=== PATIENT | male | born 1995 | race Caucasian/White ===

== ENCOUNTER 2016-06-24 19:11 | Emergency (ER) | payer OTHER ==
[2016-06-24 19:27] VITALS: RESP 20
[2016-06-24] MEDS ORDERED: ONDANSETRON 4 MG/2 ML VIAL IVP STA (20:08)
[2016-06-24] MEDS ORDERED: SODIUM CHLORIDE 0.9% 1,000 ML IV STA (20:08)
--- NOTE | 2016-06-24 20:11 | ED ---
General Adult HPI - General Chief complaint: Abdominal Pain Stated complaint: abd pain Time Seen by Provider: 06/24/16 19:48 Source: patient Mode of arrival: ambulatory Limitations: no limitations - History of Present Illness Initial comments: 21-year-old male awoke with nausea vomiting diarrhea is gone about 8 times today no blood or mucus. No recent antibiotics. No concern regarding food poisoning did not wear unusual and no one else is been ill. Feels hot and cold and achy. No serious health problems. - Related Data Previous Rx's Medication Instructions Recorded Diphenox-Atrop 2.5-0.025 mg 1 tab PO QID PRN #14 tablet 06/24/16 [Lomotil] Ondansetron Odt [Zofran Odt] 4 mg PO Q8HR PRN #6 tab 06/24/16 Allergies Allergy/AdvReac Type Severity Reaction Status Date / Time No Known Allergies Allergy Verified 06/24/16 19:58 Review of Systems ROS Statement: Those systems with pertinent positive or pertinent negative responses have been documented in the HPI. ROS Other: All systems not noted in ROS Statement are negative. Constitutional: Reports: chills. Denies: fever Eyes: Reports: eye discharge ENT: Denies: ear pain, throat pain Respiratory: Denies: cough Cardiovascular: Denies: chest pain Endocrine: Reports: fatigue Gastrointestinal: Reports: nausea, vomiting, diarrhea. Denies: abdominal pain, melena Genitourinary: Denies: urgency, dysuria, frequency, hematuria Skin: Denies: rash Neurological: Denies: headache Hematological/Lymphatic: Denies: easy bleeding, swollen glands Past Medical History Past Medical History: No Reported History History of Any Multi-Drug Resistant Organisms: None Reported Past Surgical History: No Surgical Hx Reported Past Psychological History: No Psychological Hx Reported Smoking Status: Current every day smoker Past Alcohol Use History: Rare Past Drug Use History: None Reported General Exam Limitations: no limitations General appearance: alert Head exam: Present: atraumatic Eye exam: Present: PERRL, EOMI ENT exam: Present: normal oropharynx, mucous membranes dry, mucous membranes moist, TM's normal bilaterally Respiratory exam: Present: normal lung sounds bilaterally Cardiovascular Exam: Present: normal rhythm, normal heart sounds GI/Abdominal exam: Present: soft. Absent: tenderness Neurological exam: Present: alert, CN II-XII intact Psychiatric exam: Present: normal affect, normal mood Skin exam: Present: warm, dry Course Vital Signs 06/24/16 06/24/16 19:25 20:51 Temperature 100.7 F H 98.0 F Pulse Rate 119 H 102 H Respiratory 20 20 Rate Blood Pressure 112/58 114/74 O2 Sat by Pulse 96 Oximetry Medical Decision Making - Lab Data Result diagrams: 06/24/16 20:50 Lab Results 06/24/16 Range/Units 20:50 WBC 9.7 (4.0-11.0) k/uL RBC 5.37 (4.30-5.90) m/uL Hgb 16.1 (13.0-17.5) gm/dL Hct 49.1 (39.0-53.0) % MCV 91.5 (80.0-100.0) fL MCH 30.0 (25.0-35.0) pg MCHC 32.8 (31.0-37.0) g/dL RDW 13.7 (11.5-15.5) % Plt Count 174 (150-450) k/uL Neutrophils % 86 % Lymphocytes % 6 % Monocytes % 5 % Eosinophils % 1 % Basophils % 2 % Neutrophils # 8.4 H (1.3-7.7) k/uL Lymphocytes # 0.5 L (1.0-4.8) k/uL Monocytes # 0.5 (0-1.0) k/uL Eosinophils # 0.1 (0-0.7) k/uL Basophils # 0.1 (0-0.2) k/uL Disposition Clinical Impression: Acute gastroenteritis Disposition: HOME SELF-CARE Condition: Good Instructions: Gastroenteritis (ED) Prescriptions: Diphenox-Atrop 2.5-0.025 mg [Lomotil] 1 tab PO QID PRN #14 tablet PRN Reason: Diarrhea Ondansetron Odt [Zofran Odt] 4 mg PO Q8HR PRN #6 tab PRN Reason: Vomiting Time of Disposition: 21:29
[2016-06-24 21:12] LABS: Basophils # (A) 0.1 k/uL (0-0.2); Basophils % (A) 2 %; CH 31.4; CHCM 34.5; Eosinophils # (A) 0.1 k/uL (0-0.7); Eosinophils % (A) 1 %; HCT 49.1 % (39.0-53.0); HDW 2.36; HGB 16.1 gm/dL (13.0-17.5); Immature Gran Flag Slight; Luc # (Auto) 0.07; Luc % (Auto) 1; Lymphocytes # (A) 0.5 k/uL (1.0-4.8); Lymphocytes % (A) 6 %; MCHC 32.8 g/dL (31.0-37.0); MCV 91.5 fL (80.0-100.0); Mean Platelet Volume 8.4; Monocytes # (A) 0.5 k/uL (0-1.0); Monocytes % (A) 5 %; Neutrophils # (A) 8.4 k/uL (1.3-7.7); Neutrophils % (A) 86 %; RBC 5.37 m/uL (4.30-5.90); RDW 13.7 % (11.5-15.5); WBC 9.7 k/uL (4.0-11.0); WBC (Perox) 9.66
[2016-06-24 21:38] LABS: Anion Gap 12 mmol/L; Blood Urea Nitrogen 18 mg/dL (9-20); Calcium 9.1 mg/dL (8.4-10.2); Carbon Dioxide 22 mmol/L (22-30); Chloride 103 mmol/L (98-107); Glucose 90 mg/dL (74-99); Non-African American GFR(MDRD) >60 (>60 ml/min/1.73 sqM); Potassium 4.1 mmol/L (3.5-5.1); Sodium 137 mmol/L (137-145)
[2016-06-24 22:09] VITALS: BP 115/74; PULSE 90; TEMP 98.2
== END 2016-06-24 22:09 | disposition home or self-care (01) ==
LOC: EC 19:11
DX: K52.9 Noninfective gastroenteritis and colitis, unspecified (principal); F17.200 Nicotine dependence, unspecified, uncomplicated
CPT/HCPCS: 36415; 80048; 85025; 99284; 96374; 96361; J2405

== ENCOUNTER 2016-09-06 21:20 | Emergency (ER) | payer OTHER ==
[2016-09-06 21:35] VITALS: TEMP 98.6
--- NOTE | 2016-09-06 21:52 | ED ---
General Adult HPI - General Chief complaint: Skin/Abscess/Foreign Body Stated complaint: belly button pain Time Seen by Provider: 09/06/16 21:44 Source: patient, RN notes reviewed Mode of arrival: ambulatory Limitations: no limitations - History of Present Illness Initial comments: This is a 21-year-old male presents with tenderness and swelling inside his navel. Patient states this has been happening on and off for 2 months. Patient states he thinks his belly button is irritated by his belt. Patient states the area has been draining. Patient denies any fever/chills or abdominal pain. Patient denies any history of abdominal hernia. Patient denies any recent fever, chills, shortness breath, chest pain, abdominal pain, nausea/ vomiting/diarrhea, back pain, numbness, tingling, hematuria, headache, or visual changes, or any other complaints. - Related Data Previous Rx's Medication Instructions Recorded Sulfamethox-Tmp 800-160Mg [Bactrim 1 tab PO Q12HR #28 tab 09/07/16 DS 800-160 mg] Allergies Allergy/AdvReac Type Severity Reaction Status Date / Time No Known Allergies Allergy Verified 09/06/16 21:34 Review of Systems ROS Statement: Those systems with pertinent positive or pertinent negative responses have been documented in the HPI. ROS Other: All systems not noted in ROS Statement are negative. Past Medical History Past Medical History: No Reported History History of Any Multi-Drug Resistant Organisms: None Reported Past Surgical History: No Surgical Hx Reported Past Psychological History: No Psychological Hx Reported Smoking Status: Current every day smoker Past Alcohol Use History: None Reported Past Drug Use History: None Reported General Exam - General Exam Comments Initial Comments: General: The patient is awake and alert, in no distress, and does not appear acutely ill. Neck: The neck is supple, there is no tenderness or JVD. Cardiovascular: There is a regular rate and rhythm. No murmur, rub or gallop is appreciated. Respiratory: Lungs are clear to auscultation, respirations are non-labored, breath sounds are equal. No wheezes, stridor, rales, or rhonchi. Gastrointestinal: Soft, non-distended, non-tender abdomen without masses or organomegaly noted. There is no rebound or guarding present. No CVA tenderness. Bowel sounds are unremarkable. Musculoskeletal: Normal ROM, no tenderness. Strength 5/5. Sensation intact. Pulses equal bilaterally 2+. Neurological: A&O x 3. CN II-XII intact, There are no obvious motor or sensory deficits. Coordination appears grossly intact. Speech is normal. Skin: There is some localized swelling inside the navel that is erythematous, tender and fluctuant consistent with an abscess. Skin is warm and dry. Psychiatric: Cooperative, appropriate mood & affect, normal judgment. Limitations: no limitations Course Vital Signs 09/06/16 21:32 Temperature 98.6 F Pulse Rate 73 Respiratory 18 Rate Blood Pressure 135/75 O2 Sat by Pulse 100 Oximetry Medical Decision Making - Medical Decision Making This is a 21-year-old male presents with tenderness and swelling in the navel. On physical exam patient is afebrile in the EC. There is some localized swelling inside the navel that is erythematous, tender and fluctuant consistent with an abscess. An ultrasound of the abdomen was done for further evaluation and to rule out hernia and this showed: Indeterminant 2.41.32.2 cm irregular-shaped hypoechoic structure with minimal peripheral vascularity. Differential includes a collection/abscess versus mass. Recommend CT for further evaluation. Report read by Dr. Mancilla. At this time a CT of the abdomen and pelvis without contrast was done and reviewed showin. Roughly 15 x 12 x 9 mm (AP, TV, SI) 24 HU focus along the right aspect of the umbilicus concerning for phlegmon/abscess. Given triangular tail extending posteriorly into the peritoneum, a patent urachus not excluded (series 7 image 68). Consider urology consult. 2. Prominent mesenteric lymph nodes, nonspecific and may be reactive. 3. Hepatomegaly. Reported by Dr. Mancilla. At this time I discussed results with Dr. Underwood and with the patient. Discussed admission for surgery and urology consult with the patient and the patient refuses to stay. I urged the patient to stay but he states he cannot miss work. I discussed that patient will be put on Bactrim as an outpatient and I discussed that he needs to follow-up urology and Gen. surgery. I discussed return parameters and Tylenol and Motrin for any pain. Patient agrees to follow up and return for any worsening signs or symptoms. Discussed that patient should follow up with PCP in one to 2 days or return to the EC for any worsening symptoms or for any further concerns. Patient was receptive to this plan and patient will be discharged home. I discussed this case with attending physician Dr. Francis who agrees the plan as stated above. Disposition Clinical Impression: Abscess Disposition: HOME SELF-CARE Condition: Good Instructions: Abscess (ED) Additional Instructions: Please follow-up with general surgery and urology for further evaluation. Please finish entire course of antibiotics. Please use Tylenol and Motrin for any pain. Please follow-up with your primary care physician in one to 2 days or return to the EC for any worsening symptoms or for any further concerns. Prescriptions: Sulfamethox-Tmp 800-160Mg [Bactrim DS 800-160 mg] 1 tab PO Q12HR #28 tab Referrals: None,Stated [Primary Care Provider] - 1-2 days En Ta MD [STAFF PHYSICIAN] - 1-2 days Delmi James MD [STAFF PHYSICIAN] - 1-2 days Time of Disposition: 00:45
--- NOTE | 2016-09-06 22:53 | US ---
EXAM: US Umbilicus. CLINICAL HISTORY: Reason: Pain TECHNIQUE: Real-time ultrasound of the umbilicus with image documentation. COMPARISON: No relevant prior studies available. FINDINGS: Indeterminate 2.4 x 1.3 x 2.2 cm irregular shaped hypoechoic structure with minimal peripheral vascularity. Differential includes a collection/abscess versus mass. Recommend CT for further evaluation. IMPRESSION: Indeterminate 2.4 x 1.3 x 2.2 cm irregular shaped hypoechoic structure with minimal peripheral vascularity. Differential includes a collection/abscess versus mass. Recommend CT for further evaluation.
--- NOTE | 2016-09-07 00:04 | CT ---
EXAM: CT Abdomen and Pelvis Without Intravenous Contrast. CLINICAL HISTORY: Reason: Pain TECHNIQUE: Axial computed tomography images of the abdomen and pelvis without intravenous contrast. CTDI is 13 mGy and DLP is 721 mGy-cm. This CT exam was performed using one or more of the following dose reduction techniques: automated exposure control, adjustment of the mA and/or kV according to patient size, and/or use of iterative reconstruction technique. COMPARISON: Ultrasound 09/06/2016. FINDINGS: Lower thorax: No acute findings. ABDOMEN: Liver: Hepatomegaly. Gallbladder and bile ducts: Unremarkable. No calcified stones. No ductal dilation. Pancreas: Unremarkable. No ductal dilation. Spleen: Unremarkable. No splenomegaly. Adrenals: Unremarkable. No mass. Kidneys and ureters: Unremarkable. No obstructing stones. No hydronephrosis. Stomach and bowel: Unremarkable. No obstruction. No mucosal thickening. Appendix: No findings to suggest acute appendicitis. PELVIS: Bladder: Unremarkable. No stones. Reproductive: Unremarkable as visualized. ABDOMEN and PELVIS: Intraperitoneal space: Unremarkable. No free air. No significant fluid collection. Bones/joints: No acute fracture. No dislocation. Soft tissues: Roughly 15 x 12 x 9 mm (AP, TV, SI)/24 HU focus along the right aspect of the umbilicus concerning for phlegmon/abscess. Given triangular tail extending posteriorly into the peritoneum, a patent urachus not excluded (series 7 image 68). Consider urology consult Vasculature: Unremarkable. No abdominal aortic aneurysm. Lymph nodes: Prominent mesenteric lymph nodes, nonspecific and may be reactive. IMPRESSION: 1. Roughly 15 x 12 x 9 mm (AP, TV, SI)/24 HU focus along the right aspect of the umbilicus concerning for phlegmon/abscess. Given triangular tail extending posteriorly into the peritoneum, a patent urachus not excluded (series 7 image 68). Consider urology consult 2. Prominent mesenteric lymph nodes, nonspecific and may be reactive. 3. Hepatomegaly.
[2016-09-07 01:05] VITALS: BP 128/73; PULSE 77; RESP 16
== END 2016-09-07 01:04 | disposition home or self-care (01) ==
LOC: EC 21:20
DX: L02.216 Cutaneous abscess of umbilicus (principal); R16.0 Hepatomegaly, not elsewhere classified; F17.200 Nicotine dependence, unspecified, uncomplicated
CPT/HCPCS: 74176; 76705; 99284

== ENCOUNTER 2016-09-07 13:30 | Emergency (ER) | payer OTHER ==
[2016-09-07 14:39] VITALS: RESP 18
--- NOTE | 2016-09-07 15:48 | ED ---
General Adult HPI - General Chief complaint: Recheck/Abnormal Lab/Rx Stated complaint: abscess in naval Time Seen by Provider: 09/07/16 15:37 Source: patient, RN notes reviewed Mode of arrival: ambulatory Limitations: no limitations - History of Present Illness Initial comments: 21-year-old male presents emergency Department chief complaint umbilical pain. Patient was seen in emergency department yesterday and told he had abdominal abscess. Patient was advised to stay but he signed out states that he had a little work. Patient states he had increased pain and states he cannot go to work. Patient states that the pain is worse today than yesterday. Patient denies fever, chills. Patient states he has had some control feeling for last few months but states this is much different. Patient denies any nausea, vomiting diarrhea constipation. Denies any dysuria or hematuria. - Related Data Previous Rx's Medication Instructions Recorded Ibuprofen [Motrin] 600 mg PO Q8HR PRN #30 tab 09/07/16 Sulfamethox-Tmp 800-160Mg [Bactrim 1 tab PO Q12HR #28 tab 09/07/16 DS 800-160 mg] Allergies Allergy/AdvReac Type Severity Reaction Status Date / Time No Known Allergies Allergy Verified 09/07/16 15:49 Review of Systems ROS Statement: Those systems with pertinent positive or pertinent negative responses have been documented in the HPI. ROS Other: All systems not noted in ROS Statement are negative. Past Medical History Past Medical History: No Reported History History of Any Multi-Drug Resistant Organisms: None Reported Past Surgical History: Hernia Repair, Orthopedic Surgery Additional Past Surgical History / Comment(s): right arm Past Psychological History: No Psychological Hx Reported Smoking Status: Current every day smoker Past Alcohol Use History: None Reported Past Drug Use History: None Reported General Exam General appearance: alert, in no apparent distress Head exam: Present: atraumatic, normocephalic, normal inspection Respiratory exam: Present: normal lung sounds bilaterally. Absent: respiratory distress, wheezes, rales, rhonchi, stridor Cardiovascular Exam: Present: regular rate, normal rhythm, normal heart sounds. Absent: systolic murmur, diastolic murmur, rubs, gallop, clicks GI/Abdominal exam: Present: soft, tenderness (Moderate tenderness around the umbilicus there is a 1 cm erythematous area this region with palpation), normal bowel sounds. Absent: distended, guarding, rebound, rigid Back exam: Absent: CVA tenderness (R), CVA tenderness (L) Psychiatric exam: Present: normal affect, normal mood Course Vital Signs 09/07/16 14:35 Temperature 98.1 F Pulse Rate 67 Respiratory 18 Rate Blood Pressure 118/61 O2 Sat by Pulse 98 Oximetry Procedures - Incision & Drainage Consent Obtained: verbal consent Indication: Abscess Site: other (Umbilicus region) Size (cm): 1 Anesthetic Used: lidocaine 1%, without epi Amount (mLs): 3 I&D Cleaning Method: Betadine Scalpel Used: #11 I&D Drainage Obtained: Pus, Blood Culture Obtained?: No Patient Tolerated Procedure: well, no complications Medical Decision Making - Lab Data Result diagrams: 09/07/16 15:50 09/07/16 15:50 Lab Results 09/07/16 09/07/16 09/07/16 Range/Units 15:50 15:50 15:50 WBC 7.1 (4.0-11.0) k/uL RBC 5.32 (4.30-5.90) m/uL Hgb 16.4 (13.0-17.5) gm/dL Hct 49.9 (39.0-53.0) % MCV 93.8 (80.0-100.0) fL MCH 30.8 (25.0-35.0) pg MCHC 32.9 (31.0-37.0) g/dL RDW 13.6 (11.5-15.5) % Plt Count 234 (150-450) k/uL Neutrophils % 61 % Lymphocytes % 26 % Monocytes % 6 % Eosinophils % 4 % Basophils % 1 % Neutrophils # 4.3 (1.3-7.7) k/uL Lymphocytes # 1.9 (1.0-4.8) k/uL Monocytes # 0.5 (0-1.0) k/uL Eosinophils # 0.3 (0-0.7) k/uL Basophils # 0.0 (0-0.2) k/uL PT 10.2 (9.0-12.0) sec INR 1.0 (<1.1) APTT 25.3 (22.0-30.0) sec Sodium 143 (137-145) mmol/L Potassium 4.4 (3.5-5.1) mmol/L Chloride 105 (98-107) mmol/L Carbon Dioxide 28 (22-30) mmol/L Anion Gap 10 mmol/L BUN 16 (9-20) mg/dL Creatinine 0.80 (0.66-1.25) mg/dL Est GFR (MDRD) Af Amer >60 (>60 ml/min/1.73 sqM) Est GFR (MDRD) Non-Af >60 (>60 ml/min/1.73 sqM) Glucose 68 L (74-99) mg/dL Calcium 9.5 (8.4-10.2) mg/dL Total Bilirubin 0.4 (0.2-1.3) mg/dL AST 26 (17-59) U/L ALT 33 (21-72) U/L Alkaline Phosphatase 86 (38-126) U/L Total Protein 7.5 (6.3-8.2) g/dL Albumin 4.5 (3.5-5.0) g/dL Disposition Clinical Impression: Abscess, umbilical Disposition: HOME SELF-CARE Condition: Stable Instructions: Abscess Incision and Drainage (ED) Additional Instructions: Please return to the Emergency Department if symptoms worsen or any other concerns. Take antibiotics as directed. Prescriptions: Ibuprofen [Motrin] 600 mg PO Q8HR PRN #30 tab PRN Reason: Pain Referrals: None,Stated [Primary Care Provider] - 1-2 days Víctor Macias MD [STAFF PHYSICIAN] - 1-2 days Time of Disposition: 17:24
[2016-09-07 16:01] LABS: Basophils % (A) 1 %; CH 31.6; CHCM 33.9; Eosinophils # (A) 0.3 k/uL (0-0.7); Eosinophils % (A) 4 %; HCT 49.9 % (39.0-53.0); HDW 2.47; HGB 16.4 gm/dL (13.0-17.5); Luc # (Auto) 0.15; Luc % (Auto) 2; Lymphocytes # (A) 1.9 k/uL (1.0-4.8); Lymphocytes % (A) 26 %; MCH 30.8 pg (25.0-35.0); MCHC 32.9 g/dL (31.0-37.0); MCV 93.8 fL (80.0-100.0); Monocytes # (A) 0.5 k/uL (0-1.0); Monocytes % (A) 6 %; Neutrophils # (A) 4.3 k/uL (1.3-7.7); Neutrophils % (A) 61 %; RBC 5.32 m/uL (4.30-5.90); RDW 13.6 % (11.5-15.5); WBC 7.1 k/uL (4.0-11.0); WBC (Perox) 7.18
[2016-09-07 16:10] LABS: ALT 33 U/L (21-72); AST 26 U/L (17-59); Alkaline Phosphatase 86 U/L (38-126); Anion Gap 10 mmol/L; Blood Urea Nitrogen 16 mg/dL (9-20); Calcium 9.5 mg/dL (8.4-10.2); Carbon Dioxide 28 mmol/L (22-30); Chloride 105 mmol/L (98-107); Glucose 68 mg/dL (74-99); Non-African American GFR(MDRD) >60 (>60 ml/min/1.73 sqM); Potassium 4.4 mmol/L (3.5-5.1); Sodium 143 mmol/L (137-145); Total Bilirubin 0.4 mg/dL (0.2-1.3); Total Protein 7.5 g/dL (6.3-8.2)
[2016-09-07 16:38] LABS: Partial Thromboplastin Time 25.3 sec (22.0-30.0); Prothrombin Time 10.2 sec (9.0-12.0)
[2016-09-07 18:15] VITALS: BP 127/65; PULSE 60; TEMP 97.1
== END 2016-09-07 18:15 | disposition home or self-care (01) ==
LOC: EC 13:30
DX: L02.216 Cutaneous abscess of umbilicus (principal); F17.200 Nicotine dependence, unspecified, uncomplicated
CPT/HCPCS: 10060; 36415; 80053; 85025; 85610; 85730; 87040; 87070; 87205; 99283

== ENCOUNTER 2016-10-02 20:10 | Emergency (ER) | payer OTHER ==
[2016-10-02 20:16] VITALS: BP 133/61; PULSE 73; RESP 18; TEMP 98.2
[2016-10-02] MEDS ORDERED: KETOROLAC 60 MG/2 ML VIAL IM STA (20:26)
[2016-10-02] MEDS ORDERED: ORPHENADRINE 30 MG/ML 2 ML VIAL IM STA (20:26)
--- NOTE | 2016-10-02 20:33 | ED ---
Back Pain HPI - General Chief Complaint: Back Pain/Injury Stated Complaint: Mid-back pain Time Seen by Provider: 10/02/16 20:16 Source: patient, RN notes reviewed Limitations: no limitations - History of Present Illness Initial Comments: 21-year-old male presents to the emergency department with a chief complaint of back pain. Patient states that he tweaked his back at work today. Patient states pains in the center of the back. Patient states is no radiation. Patient states constant type pain worse to move. Patient denies any loss of bowel or bladder function with this. Patient denies any fever chills cough cold Raynaud's. Patient eyes any nausea vomiting or radiation the pain. Patient states she was concerned due to the continued pain so he thought that he should be evaluated.Patient denies any recent fever, chills, shortness of breath, chest pain, abdominal pain, nausea vomiting, numbness or tingling, dysuria or hematuria, constipation or diarrhea, headaches or visual changes, or any other current symptoms. - Related Data Previous Rx's Medication Instructions Recorded Sulfamethox-Tmp 800-160Mg [Bactrim 1 tab PO Q12HR #28 tab 09/07/16 DS 800-160 mg] Ibuprofen [Motrin] 800 mg PO Q6HR PRN #20 tab 10/02/16 Orphenadrine [Norflex] 100 mg PO Q12H #10 tablet.er 10/02/16 Allergies Allergy/AdvReac Type Severity Reaction Status Date / Time No Known Allergies Allergy Verified 10/02/16 20:15 Review of Systems ROS Statement: Those systems with pertinent positive or pertinent negative responses have been documented in the HPI. ROS Other: All systems not noted in ROS Statement are negative. Past Medical History Past Medical History: No Reported History History of Any Multi-Drug Resistant Organisms: None Reported Past Surgical History: Hernia Repair, Orthopedic Surgery Additional Past Surgical History / Comment(s): right arm Past Psychological History: No Psychological Hx Reported Smoking Status: Current every day smoker Past Alcohol Use History: None Reported Past Drug Use History: None Reported General Exam Limitations: no limitations General appearance: alert, in no apparent distress Head exam: Present: atraumatic, normocephalic, normal inspection ENT exam: Present: normal exam, mucous membranes moist Neck exam: Present: normal inspection. Absent: tenderness, meningismus, lymphadenopathy Respiratory exam: Present: normal lung sounds bilaterally. Absent: respiratory distress, wheezes, rales, rhonchi, stridor Cardiovascular Exam: Present: regular rate, normal rhythm, normal heart sounds. Absent: systolic murmur, diastolic murmur, rubs, gallop, clicks Back exam: Present: normal inspection, full ROM, paraspinal tenderness (Right and left), vertebral tenderness (Diffuse through lumbar). Absent: rash noted Expanded Back exam: Absent: saddle anesthesia Back exam: Negative Straight Leg Raising: Left, Right Neurological exam: Present: alert, oriented X3 Skin exam: Present: warm, dry, intact, normal color. Absent: rash Course Vital Signs 10/02/16 20:12 Temperature 98.2 F Pulse Rate 73 Respiratory 18 Rate Blood Pressure 133/61 O2 Sat by Pulse 96 Oximetry Medical Decision Making - Medical Decision Making 21-year-old male presents with lumbar strain. At this time x-rays that show any acute processes. Patient's medications. Discussed with surgeon on muscle relaxers and anti-inflammatories for home. We discussed. With his doctor return parameters. We discussed all patient's questions. He stated that he understood and agreed with plan. All questions are answered. He will be discharged. - Radiology Data Radiology results: report reviewed, image reviewed Disposition Clinical Impression: Lumbar strain Disposition: HOME SELF-CARE Condition: Stable Instructions: Lower Back Exercises (ED), Low Back Strain (ED) Additional Instructions: Please use medication as discussed. Please follow up with family doctor if symptoms have not improved over the next two days. Please return to the emergency room if your symptoms increase or worsen or for any other concerns. Prescriptions: Ibuprofen [Motrin] 800 mg PO Q6HR PRN #20 tab PRN Reason: Pain Orphenadrine [Norflex] 100 mg PO Q12H #10 tablet.er Referrals: Yovany Tovar MD [STAFF PHYSICIAN] - 1-2 days Time of Disposition: 20:43
--- NOTE | 2016-10-02 20:41 | XR ---
EXAMINATION TYPE: XR lumbar spine 2 or 3V DATE OF EXAM: 10/02/2016 8:36 PM CLINICAL HISTORY: pain TECHNIQUE: Three views of the lumbar spine are submitted. COMPARISON: None. FINDINGS: There are 5 lumbar type vertebral bodies identified. The lumbar spine shows satisfactory alignment w ithout evidence of acute fracture or dislocation. Vertebral body heights are within normal limits. Disc spaces are within normal limits. The overlying soft tissue appears unremarkable. IMPRESSION: No acute fracture or dislocation is seen in the lumbar spine. ICD 10 NO FRACTURE, INITIAL EVALUATION
== END 2016-10-02 20:53 | disposition home or self-care (01) ==
LOC: EC 20:10
DX: S39.012A Strain of muscle, fascia and tendon of lower back, initial encounter (principal); F17.200 Nicotine dependence, unspecified, uncomplicated; X50.1XXA Overexertion from prolonged static or awkward postures, initial encounter; Y92.89 Other specified places as the place of occurrence of the external cause; Y99.0 Civilian activity done for income or pay
CPT/HCPCS: 72100; 99283; 96372 ×2; J2360; J1885

== ENCOUNTER 2017-01-19 12:38 | Emergency (ER) | payer OTHER ==
[2017-01-19] MEDS ORDERED: MAG HYDROX/AL HYDROX/SIMETH 30 ML, HYOSCYAMINE ELIXIR 10 ML, CIMETIDINE HCL 300 MG PO STA ×3 (13:31)
--- NOTE | 2017-01-19 13:35 | ED ---
General Adult HPI - General Chief complaint: Abdominal Pain Stated complaint: Abd Pain Time Seen by Provider: 01/19/17 13:00 Source: patient, RN notes reviewed Mode of arrival: ambulatory Limitations: no limitations - History of Present Illness Initial comments: This is a 21-year-old male presents emergency department stating that for the last 5-6 days 3 times eats something it upsets his stomach. Patient states he' s been mildly nauseated but has not vomited. Patient denies any diarrhea. denies any fever or chills. Patient denies any chest pain difficulty breathing or shortness of breath. Patient states he does not have a primary medical care doctor. Patient states it doesn't seem to matter what he eats it all upsets his stomach. When I ask him specifically where in his stomach he says everywhere. - Related Data Home Medications Medication Instructions Recorded Confirmed No Known Home Medications [No 01/19/17 01/19/17 Known Home Medications] Allergies Allergy/AdvReac Type Severity Reaction Status Date / Time No Known Allergies Allergy Verified 01/19/17 13:22 Review of Systems ROS Statement: Those systems with pertinent positive or pertinent negative responses have been documented in the HPI. ROS Other: All systems not noted in ROS Statement are negative. Past Medical History Past Medical History: No Reported History History of Any Multi-Drug Resistant Organisms: None Reported Past Surgical History: Hernia Repair, Orthopedic Surgery Additional Past Surgical History / Comment(s): right arm Past Psychological History: No Psychological Hx Reported Smoking Status: Current every day smoker Past Alcohol Use History: None Reported Past Drug Use History: None Reported General Exam - General Exam Comments Initial Comments: GENERAL: Patient is well-developed and well-nourished. Patient is nontoxic and well- hydrated and is in mild distress. ENT: Neck is soft and supple. No significant lymphadenopathy is noted. Oropharynx is clear. Moist mucous membranes. Neck has full range of motion without eliciting any pain. EYES: The sclera were anicteric and conjunctiva were pink and moist. Extraocular movements were intact and pupils were equal round and reactive to light. Eyelids were unremarkable. PULMONARY: Unlabored respirations. Good breath sounds bilaterally. No audible rales rhonchi or wheezing was noted. CARDIOVASCULAR: There is a regular rate and rhythm without any murmurs gallops or rubs. ABDOMEN: Mildly tender abdomen in the upper quadrants. No palpable organomegaly was noted. There is no palpable pulsatile mass. SKIN: Skin is clear with no lesions or rashes and otherwise unremarkable. NEUROLOGIC: Patient is alert and oriented x3. Cranial nerves II through XII are grossly intact. Motor and sensory are also intact. Normal speech, volume and content. Symmetrical smile. MUSCULOSKELETAL: Normal extremities with adequate strength and full range of motion. LYMPHATICS: No significant lymphadenopathy is noted PSYCHIATRIC: Normal psychiatric evaluation. Normal interpersonal interactions appears functionally intact in deals appropriately with others. No signs of depression. No signs of anxiety. Limitations: no limitations Course Vital Signs 01/19/17 13:18 Temperature 97.0 F L Pulse Rate 68 Respiratory 18 Rate Blood Pressure 132/78 O2 Sat by Pulse 98 Oximetry Medical Decision Making - Medical Decision Making KUB shows no acute abnormality. Patient is requesting a note because he has court ordered work today and he didn't go. - Lab Data Result diagrams: 01/19/17 13:35 01/19/17 13:35 Lab Results 01/19/17 01/19/17 01/19/17 Range/Units 13:35 13:35 13:50 WBC 6.2 (4.0-11.0) k/uL RBC 4.89 (4.30-5.90) m/uL Hgb 15.3 (13.0-17.5) gm/dL Hct 45.9 (39.0-53.0) % MCV 94.0 (80.0-100.0) fL MCH 31.2 (25.0-35.0) pg MCHC 33.2 (31.0-37.0) g/dL RDW 14.2 (11.5-15.5) % Plt Count 200 (150-450) k/uL Neutrophils % 54 % Lymphocytes % 32 % Monocytes % 6 % Eosinophils % 4 % Basophils % 1 % Neutrophils # 3.4 (1.3-7.7) k/uL Lymphocytes # 2.0 (1.0-4.8) k/uL Monocytes # 0.4 (0-1.0) k/uL Eosinophils # 0.3 (0-0.7) k/uL Basophils # 0.1 (0-0.2) k/uL Sodium 141 (137-145) mmol/L Potassium 3.9 (3.5-5.1) mmol/L Chloride 109 H (98-107) mmol/L Carbon Dioxide 25 (22-30) mmol/L Anion Gap 7 mmol/L BUN 13 (9-20) mg/dL Creatinine 0.69 (0.66-1.25) mg/dL Est GFR (MDRD) Af Amer >60 (>60 ml/min/1.73 sqM) Est GFR (MDRD) Non-Af >60 (>60 ml/min/1.73 sqM) Glucose 52 L (74-99) mg/dL Calcium 8.6 (8.4-10.2) mg/dL Total Bilirubin 0.3 (0.2-1.3) mg/dL AST 22 (17-59) U/L ALT 27 (21-72) U/L Alkaline Phosphatase 64 (38-126) U/L Total Protein 5.8 L (6.3-8.2) g/dL Albumin 3.5 (3.5-5.0) g/dL Amylase <30 L (30-110) U/L Lipase 29 (23-300) U/L Urine Color Yellow Urine Appearance Clear (Clear) Urine pH 5.5 (5.0-8.0) Ur Specific Barre 1.021 (1.001-1.035) Urine Protein 1+ H (Negative) Urine Glucose (UA) 1+ H (Negative) Urine Ketones Negative (Negative) Urine Blood Negative (Negative) Urine Nitrite Negative (Negative) Urine Bilirubin Negative (Negative) Urine Urobilinogen <2.0 (<2.0) mg/dL Ur Leukocyte Esterase Small H (Negative) Urine RBC 1 (0-5) /hpf Urine WBC 5 (0-5) /hpf Ur Squamous Epith Cells <1 (0-4) /hpf Urine Bacteria Rare H (None) /hpf Urine Mucus Rare H (None) /hpf Urine Sperm Few H (None) /hpf Disposition Clinical Impression: Gastritis Disposition: HOME SELF-CARE Condition: Good Instructions: Gastritis (ED) Referrals: None,Stated [Primary Care Provider] - 1-2 days Time of Disposition: 14:22
[2017-01-19 13:59] LABS: Basophils # (A) 0.1 k/uL (0-0.2); Basophils % (A) 1 %; CH 32.4; CHCM 34.7; Eosinophils # (A) 0.3 k/uL (0-0.7); Eosinophils % (A) 4 %; HCT 45.9 % (39.0-53.0); HDW 2.54; HGB 15.3 gm/dL (13.0-17.5); Luc # (Auto) 0.16; Luc % (Auto) 3; Lymphocytes % (A) 32 %; MCH 31.2 pg (25.0-35.0); MCHC 33.2 g/dL (31.0-37.0); Monocytes # (A) 0.4 k/uL (0-1.0); Monocytes % (A) 6 %; Neutrophils # (A) 3.4 k/uL (1.3-7.7); Neutrophils % (A) 54 %; RBC 4.89 m/uL (4.30-5.90); RDW 14.2 % (11.5-15.5); WBC 6.2 k/uL (4.0-11.0); WBC (Perox) 6.27
--- NOTE | 2017-01-19 14:03 | XR ---
EXAMINATION TYPE: XR KUB DATE OF EXAM: 01/19/2017 CLINICAL DATA: 21-year-old male with abdominal pain, PHH COMPARISON: None FINDINGS: Lung bases are clear. No evidence for free intraperitoneal air. Small air-fluid levels within the right hemicolon. No dilated small bowel or small bowel air-fluid le vels seen. No significant stool burden. No suspicious calcifications. IMPRESSION: 1. Tiny air-fluid levels in the right hemicolon suggest enteritis or regional ileus. 2.No evidence of bowel obstruction or free intraperitoneal air.
[2017-01-19 14:08] LABS: Appearance,Urine Clear (Clear); Bacteria,Urine Rare /hpf; Bilirubin,Urine Negative (Negative); Glucose,Urine (UA) 1+ (Negative); Ketones,Urine Negative (Negative); Leukocyte Esterase,Urine Small (Negative); Mucus,Urine Rare /hpf; Nitrite,Urine Negative (Negative); PH, Urine 5.5 (5.0-8.0); Particle Count 4911; Protein,Urine 1+ (Negative); RBC,Urine 1 /hpf (0-5); Specific Gravity,Urine 1.021 (1.001-1.035); Sperm,Urine Few /hpf; Squamous Epithelial Cell,Urine <1 /hpf (0-4); UA Billing (MACRO vs. MICRO) MICRO; Urobilinogen,Urine <2.0 mg/dL (<2.0); WBC,Urine 5 /hpf (0-5)
[2017-01-19 14:09] LABS: ALT 27 U/L (21-72); AST 22 U/L (17-59); Alkaline Phosphatase 64 U/L (38-126); Amylase <30 U/L (30-110); Anion Gap 7 mmol/L; Blood Urea Nitrogen 13 mg/dL (9-20); Calcium 8.6 mg/dL (8.4-10.2); Carbon Dioxide 25 mmol/L (22-30); Chloride 109 mmol/L (98-107); Glucose 52 mg/dL (74-99); Non-African American GFR(MDRD) >60 (>60 ml/min/1.73 sqM); Potassium 3.9 mmol/L (3.5-5.1); Sodium 141 mmol/L (137-145); Total Bilirubin 0.3 mg/dL (0.2-1.3); Total Protein 5.8 g/dL (6.3-8.2)
[2017-01-19 14:33] VITALS: BP 118/59; PULSE 52; RESP 14; TEMP 97.6
== END 2017-01-19 14:35 | disposition home or self-care (01) ==
LOC: EC 12:38
DX: K29.70 Gastritis, unspecified, without bleeding (principal); F17.200 Nicotine dependence, unspecified, uncomplicated
CPT/HCPCS: 36415; 74000; 80053; 81001; 82150; 83690; 85025; 99284

== ENCOUNTER 2017-06-14 16:57 | Emergency (ER) | payer OTHER ==
[2017-06-14 17:04] VITALS: BP 151/85; PULSE 92; RESP 16
--- NOTE | 2017-06-14 17:52 | XR ---
EXAMINATION TYPE: XR shoulder complete RT DATE OF EXAM: 06/14/2017 COMPARISON: NONE HISTORY: Shoulder pain TECHNIQUE: 3 views FINDINGS: I see no fracture nor dislocation. Joint spaces are normal. There are no pathologic calcifi cations. IMPRESSION: Negative right shoulder exam.
--- NOTE | 2017-06-14 17:53 | XR ---
EXAMINATION TYPE: XR cervical spine comp DATE OF EXAM: 06/14/2017 COMPARISON: NONE HISTORY: Pain TECHNIQUE: 5 views FINDINGS: Cervical vertebra have normal spacing and alignment. Posterior limits are intact. Neural fo ramina are widely patent. Atlantoaxial facet joint is normal. There are no cervical ribs. IMPRESSION: Normal cervical spine.
--- NOTE | 2017-06-14 17:54 | XR ---
EXAMINATION TYPE: XR wrist complete RT DATE OF EXAM: 06/14/2017 COMPARISON: NONE HISTORY: Wrist pain TECHNIQUE: 4 views FINDINGS: I see no fracture nor dislocation. Joint spaces are normal. There are no pathologic calcifi cations. IMPRESSION: Negative right wrist exam.
--- NOTE | 2017-06-14 18:02 | ED ---
Fall HPI - General Chief Complaint: Fall Stated Complaint: Shoulder injury Time Seen by Provider: 06/14/17 17:18 Source: patient Mode of arrival: ambulatory - History of Present Illness Initial Comments: 22-year-old male patient presents to the emergency department today for evaluation of neck, right shoulder, and right wrist pain after a fall on Saturday. Patient states that he initially was fine however started developing pain to these areas this morning when he woke from sleep. He is reporting pain to the left side of the neck that increases with rightward rotation. He states he is also having pain to the right posterior shoulder with movement of the arm. He states he does have pain with movement to the right wrist. He denies any numbness or tingling in his arms or legs. Denies any loss of bowel or bladder control. Denies any weakness. He states he did hit his head however he did not lose consciousness at the time of injury. Denies any headaches, nausea, vomiting, dizziness, or weakness of the incident. Patient denies any back pain, chest pain, shortness of breath, dizziness, weakness, abdominal pain, nausea, vomiting, or difficulties with bowel movements or urination. - Related Data Previous Rx's Medication Instructions Recorded Ibuprofen [Motrin] 600 mg PO Q8HR PRN #30 tab 06/14/17 Allergies Allergy/AdvReac Type Severity Reaction Status Date / Time No Known Allergies Allergy Verified 06/14/17 17:18 Review of Systems ROS Statement: Those systems with pertinent positive or pertinent negative responses have been documented in the HPI. ROS Other: All systems not noted in ROS Statement are negative. Past Medical History Past Medical History: No Reported History History of Any Multi-Drug Resistant Organisms: None Reported Past Surgical History: Hernia Repair, Orthopedic Surgery Additional Past Surgical History / Comment(s): right arm Past Psychological History: No Psychological Hx Reported Smoking Status: Current every day smoker Past Alcohol Use History: Occasional Past Drug Use History: None Reported General Exam Limitations: no limitations General appearance: alert, in no apparent distress, other (Physical well- developed, well-nourished adult male patient no acute distress. Vital signs upon presentation are temperature 96.9F, pulse 92, respirations 16, blood pressure 151/85, pulse ox 99% on room air.) Head exam: Present: atraumatic, normocephalic, normal inspection Eye exam: Present: normal appearance, PERRL, EOMI. Absent: scleral icterus, conjunctival injection, periorbital swelling ENT exam: Present: normal exam, mucous membranes moist Neck exam: Present: normal inspection, full ROM. Absent: tenderness, meningismus, lymphadenopathy Respiratory exam: Present: normal lung sounds bilaterally. Absent: respiratory distress, wheezes, rales, rhonchi, stridor Cardiovascular Exam: Present: regular rate, normal rhythm, normal heart sounds. Absent: systolic murmur, diastolic murmur, rubs, gallop, clicks GI/Abdominal exam: Present: soft, normal bowel sounds. Absent: distended, tenderness, guarding, rebound, rigid Extremities exam: Present: normal inspection, full ROM, normal capillary refill , other (Patient reports increased pain to the right wrist with extension. Skin is pink, warm, and dry. Cap refills less than 3 seconds. Radial pulses are 2+ and equal bilaterally.). Absent: tenderness, pedal edema, joint swelling , calf tenderness Back exam: Present: normal inspection, paraspinal tenderness (Right thoracic) Neurological exam: Present: alert, oriented X3, CN II-XII intact Psychiatric exam: Present: normal affect, normal mood Skin exam: Present: warm, dry, intact, normal color. Absent: rash Course Vital Signs 06/14/17 17:01 Pulse Rate 92 Respiratory 16 Rate Blood Pressure 151/85 O2 Sat by Pulse 99 Oximetry Medical Decision Making - Medical Decision Making 22-year-old male patient presented to the emergency department today for evaluation of neck, right shoulder, and right wrist pain. Physical examination is unremarkable. Patient reported increased pain with movement. Skin to the upper extremities is pink, warm, and dry. Patient had good upper extremities strength 5/5. X-rays were obtained of the cervical spine, right wrist, and right shoulder were all negative for any acute fracture or dislocation. Patient neurovascular status was intact. Patient did request a work note several times throughout exam and then again after results were back. He'll be given one day off of work. He is instructed to follow-up with his primary care physician for further evaluation. He is instructed to return here immediately for any new, worsening, or concerning symptoms. He verbalizes understanding and agrees with this plan. - Radiology Data Radiology results: report reviewed, image reviewed 4 views of the right wrist show no fracture nor dislocation. Joint spaces are normal. There are no pathologic calcifications. Impression by Dr. Dna shows negative right wrist exam. 3 views of the right shoulder show no fracture nor dislocation. Joint spaces are normal. There are no pathologic calcifications. Impression by Dr. Dan shows negative right shoulder exam. 5 views of the cervical spine shows cervical vertebra abnormal spacing alignment. Posterior limits are intact. Neural foramina are widely patent. Atlantoaxial facet joint is normal. There are no cervical ribs. Impression by Dr. Dan shows normal cervical spine. Disposition Clinical Impression: Muscle strain Disposition: HOME SELF-CARE Condition: Good Instructions: Muscle Strain (ED) Additional Instructions: Apply warm moist heat to the painful areas. Take anti-inflammatory pain medications as directed. Follow-up with your primary care physician for recheck in 1-2 days. Return here immediately for any new, worsening, or concerning symptoms. Prescriptions: Ibuprofen [Motrin] 600 mg PO Q8HR PRN #30 tab PRN Reason: Pain Referrals: None,Stated [Primary Care Provider] - 1-2 days Time of Disposition: 18:01
== END 2017-06-14 18:11 | disposition home or self-care (01) ==
LOC: EC 16:57
DX: S46.911A Strain of unspecified muscle, fascia and tendon at shoulder and upper arm level, right arm, initial encounter (principal); M54.2 Cervicalgia; M25.531 Pain in right wrist; F17.200 Nicotine dependence, unspecified, uncomplicated; W01.198A Fall on same level from slipping, tripping and stumbling with subsequent striking against other object, initial encounter
CPT/HCPCS: 72050; 99283

== ENCOUNTER 2018-05-14 02:29 | Emergency (ER) | payer OTHER ==
[2018-05-14 02:33] VITALS: BP 122/76; PULSE 81; RESP 20; TEMP 97.8
[2018-05-14] MEDS ORDERED: KETOROLAC 30 MG/ML 1 ML VIAL IM STA (02:38)
--- NOTE | 2018-05-14 02:44 | ED ---
Upper Extremity HPI - General Source: patient, family Mode of arrival: ambulatory Limitations: no limitations <Jahaira Pereira - Last Filed: 05/14/18 03:28> <Christa Xie P - Last Filed: 05/14/18 08:03> - General Chief Complaint: Extremity Injury, Upper Stated Complaint: L shoulder Pain Time Seen by Provider: 05/14/18 02:35 - History of Present Illness Initial Comments: 23-year-old male patient percents to the emergency department today for complaints of left shoulder pain. Patient is reporting pain over the left clavicle. Patient states his playing football earlier in the day today and he was tackled and fell awkwardly on the left side. Patient states his been having pain since and however when he went to go to bed tonight the pain became worse. He denies any numbness or tingling to the arm. Denies any radiation of pain down the arm. Denies any head injury or neck pain. Denies any previous injury to the shoulder. Patient denies any headache, back pain, chest pain, shortness of breath, dizziness, weakness, abdominal pain, nausea, vomiting, or difficulties with bowel movements or urination. (Jahaira Pereira) - Related Data Previous Rx's Medication Instructions Recorded Ibuprofen [Motrin] 600 mg PO Q8HR PRN #30 tab 05/14/18 Allergies Allergy/AdvReac Type Severity Reaction Status Date / Time No Known Allergies Allergy Verified 05/14/18 02:33 Review of Systems ROS Other: All systems not noted in ROS Statement are negative. <Jahaira Pereira - Last Filed: 05/14/18 03:28> ROS Other: All systems not noted in ROS Statement are negative. <Christa Xie - Last Filed: 05/14/18 08:03> ROS Statement: Those systems with pertinent positive or pertinent negative responses have been documented in the HPI. Past Medical History Past Medical History: No Reported History History of Any Multi-Drug Resistant Organisms: None Reported Past Surgical History: Hernia Repair, Orthopedic Surgery Additional Past Surgical History / Comment(s): right arm Past Psychological History: No Psychological Hx Reported Smoking Status: Current every day smoker Past Alcohol Use History: Occasional Past Drug Use History: None Reported <Jahaira Pereira - Last Filed: 05/14/18 03:28> General Exam Limitations: no limitations General appearance: alert, in no apparent distress, other (This is a well- developed, well-nourished adult male patient in no acute distress. Vital signs upon presentation are temperature 97.8F and pulse 81, respirations 20, blood pressure 122/76, pulse ox 97%.) Eye exam: Present: normal appearance, PERRL, EOMI. Absent: scleral icterus, conjunctival injection, periorbital swelling Neck exam: Present: normal inspection, full ROM, other (Nontender, no step-off, no deformity to firm midline palpation of the posterior cervical spine. Full range of motion without pain or limitation.). Absent: tenderness, meningismus, lymphadenopathy Respiratory exam: Present: normal lung sounds bilaterally. Absent: respiratory distress, wheezes, rales, rhonchi, stridor Cardiovascular Exam: Present: regular rate, normal rhythm, normal heart sounds. Absent: systolic murmur, diastolic murmur, rubs, gallop, clicks Extremities exam: Present: normal inspection, full ROM (Increased pain with range of motion), tenderness (Tenderness over the left clavicle, midshaft), normal capillary refill, other (Skin to the left upper extremities pink, warm, and dry. Cap refills less than 3 seconds. Radial pulses 2+ and equal bilaterally.). Absent: pedal edema, joint swelling, calf tenderness Back exam: Present: normal inspection, other (Nontender, no step-off, no deformity to firm midline palpation of the thoracic and lumbar vertebrae. Full range of motion without pain or limitation.). Absent: vertebral tenderness Neurological exam: Present: alert, oriented X3, CN II-XII intact Psychiatric exam: Present: normal affect, normal mood Skin exam: Present: warm, dry, intact, normal color. Absent: rash <Jahaira Pereira M - Last Filed: 05/14/18 03:28> Vital Signs 05/14/18 02:30 Temperature 97.8 F Pulse Rate 81 Respiratory 20 Rate Blood Pressure 122/76 O2 Sat by Pulse 97 Oximetry Medical Decision Making - Radiology Data Radiology results: report reviewed, image reviewed <Jahaira Pereira M - Last Filed: 05/14/18 03:28> <Christa Xie P - Last Filed: 05/14/18 08:03> - Medical Decision Making 23-year-old male patient presents to the emergency department today for evaluation after injuring his left shoulder during football earlier today. Physical examination was relatively unremarkable however he did have some tenderness over the mid shaft of the left clavicle. X-rays were obtained and showed no acute osseous abnormalities. We did discuss possibility of a muscle strain. He'll be given prescription for ibuprofen. He is instructed to follow- up with his primary care physician for recheck in 1-2 days. Return parameters discussed in detail. He verbalizes understanding and agrees with this plan (Jahaira Pereira) I was available for consultation in the emergency department. The history and physical exam were done by the midlevel provider. I was consulted for this patient's care. I reviewed the case with the midlevel provider and based on their presentation of the patient, I agree with the assessment, medical decision making and plan of care as documented. (Christa Xie) - Radiology Data 3 views of the left shoulder obtained. No fracture or dislocation noted. Joint spaces are normal. There are no pathologic calcifications. Impression by Dr. Dan shows negative left shoulder exam. 2 views of the left clavicle are obtained. No fracture or dislocation. Joint spaces are normal. There are no pathologic calcifications. Impression by Dr. Dan shows negative left clavicle exam. (Jahaira Pereira) Disposition Is patient prescribed a controlled substance at d/c from ED?: No Time of Disposition: 03:23 <Jahaira Pereira - Last Filed: 05/14/18 03:28> <Christa Xie - Last Filed: 05/14/18 08:03> Clinical Impression: Left shoulder strain Disposition: HOME SELF-CARE Condition: Good Instructions: Shoulder Sprain (ED) Additional Instructions: Take medication as directed. Apply ice to the left shoulder 20 minutes at a time at least 4 times daily for the first 24 hours and switch to warm moist heat. Follow-up with her primary care physician for recheck 1-2 days. Return immediately for any new, worsening, or concerning symptoms. Prescriptions: Ibuprofen [Motrin] 600 mg PO Q8HR PRN #30 tab PRN Reason: Pain Referrals: None,Stated [Primary Care Provider] - 1-2 days
--- NOTE | 2018-05-14 03:19 | XR ---
EXAMINATION TYPE: XR shoulder complete LT DATE OF EXAM: 05/14/2018 COMPARISON: NONE HISTORY: Shoulder pain TECHNIQUE: 3 views FINDINGS: I see no fracture nor dislocation. Joint spaces are normal. There are no pathologic calcifi cations. IMPRESSION: Negative left shoulder exam.
--- NOTE | 2018-05-14 03:20 | XR ---
EXAMINATION TYPE: XR clavicle LT DATE OF EXAM: 05/14/2018 COMPARISON: NONE HISTORY: Clavicle pain TECHNIQUE: 2 views FINDINGS: I see no fracture nor dislocation. Joint spaces are normal. There are no pathologic calcifi cations. IMPRESSION: Negative left clavicle exam.
== END 2018-05-14 03:30 | disposition home or self-care (01) ==
LOC: EC 02:29
DX: S46.912A Strain of unspecified muscle, fascia and tendon at shoulder and upper arm level, left arm, initial encounter (principal); F17.200 Nicotine dependence, unspecified, uncomplicated; W03.XXXA Other fall on same level due to collision with another person, initial encounter; Y93.61 Activity, american tackle football
CPT/HCPCS: 73030; 73000; 99283; 96372; J1885

== ENCOUNTER 2018-07-15 11:06 | Emergency (ER) | payer OTHER ==
[2018-07-15 11:41] VITALS: BP 155/91; PULSE 66; RESP 18; TEMP 97.8
[2018-07-15] MEDS ORDERED: ACET/COD 300 MG/30 MG STARTER PACK 6 TAB BTL PO STA (12:17)
[2018-07-15] MEDS ORDERED: PENICILLIN VK 500MG STARTER 4 TAB BTL PO STA (12:18)
--- NOTE | 2018-07-15 12:18 | ED ---
ENT HPI - General Chief complaint: Dental/Oral Stated complaint: dental pain, facial swelling Time Seen by Provider: 07/15/18 12:01 Source: patient, RN notes reviewed, old records reviewed Mode of arrival: ambulatory Limitations: no limitations - History of Present Illness Initial comments: Patient is a pleasant 23-year-old male who presents emergency Department today with complaints of right upper dental pain. Patient states the symptoms started 2-3 days ago. He states that he does have poor dentition and has a broken upper right-sided tooth. Patient states that he has never seen a dentist. Currently Patient does not have insurance. Patient states that he has had no fevers or chills. He denies trismus or drainage from the gums. - Related Data Previous Rx's Medication Instructions Recorded Ibuprofen [Motrin] 600 mg PO Q8HR PRN #30 tab 05/14/18 Ibuprofen [Motrin] 600 mg PO Q8HR PRN #20 tab 07/15/18 Penicillin V Potassium [Pen Vee K] 500 mg PO QID #40 tablet 07/15/18 Allergies Allergy/AdvReac Type Severity Reaction Status Date / Time No Known Allergies Allergy Verified 07/15/18 11:41 Review of Systems ROS Statement: Those systems with pertinent positive or pertinent negative responses have been documented in the HPI. ROS Other: All systems not noted in ROS Statement are negative. Past Medical History Past Medical History: No Reported History History of Any Multi-Drug Resistant Organisms: None Reported Past Surgical History: Hernia Repair, Orthopedic Surgery Additional Past Surgical History / Comment(s): right arm Past Psychological History: No Psychological Hx Reported Smoking Status: Current every day smoker Past Alcohol Use History: Occasional Past Drug Use History: None Reported General Exam - General Exam Comments Initial Comments: 23-year-old male. Alert and oriented. Patient appears in no acute distress. Limitations: no limitations General appearance: alert, in no apparent distress Head exam: Present: atraumatic, normocephalic, normal inspection Eye exam: Present: normal appearance, PERRL, EOMI. Absent: scleral icterus, conjunctival injection, periorbital swelling ENT exam: Present: mucous membranes moist, other. Absent: normal exam, normal oropharynx (Patient has evidnce of poor dentition. Multiple dental caries. Patient has a broken tooth #6 and 7.) Neck exam: Present: normal inspection Respiratory exam: Present: normal lung sounds bilaterally. Absent: respiratory distress, wheezes, rales, rhonchi, stridor Cardiovascular Exam: Present: regular rate, normal rhythm, normal heart sounds. Absent: systolic murmur, diastolic murmur, rubs, gallop, clicks GI/Abdominal exam: Present: soft, normal bowel sounds. Absent: distended, tenderness, guarding, rebound, rigid Neurological exam: Present: alert, oriented X3, CN II-XII intact Psychiatric exam: Present: normal affect, normal mood Skin exam: Present: warm, dry, intact, normal color. Absent: rash Course Vital Signs 07/15/18 11:40 Temperature 97.8 F Pulse Rate 66 Respiratory 18 Rate Blood Pressure 155/91 O2 Sat by Pulse 98 Oximetry Medical Decision Making - Medical Decision Making 23-year-old male presents with dental pain. Has evidence of multiple dental caries. Patient has broken tooth #6 and 7 with gingival erythema noted above. Patient at this time. On Pen-Vee K short course of pain medicine given a starter pack. Discussed the Patient needs follow-up with the dental clinic. All questions answered return parameters were discussed. Disposition Clinical Impression: Dental caries, Broken tooth, Dental infection Disposition: HOME SELF-CARE Condition: Good Instructions (If sedation given, give patient instructions): Dental Abscess (ED ) Additional Instructions: [facility] [place] [address] [phone] (existing clients only) For new clients: [phone] 1st consult: $50 (includes Xrays) Usually 30% less then private dentist for visits after. [employer] [facility] [employer] Have to pay $50 for Xrays anmd rest is covered. [phone] Prescriptions: Ibuprofen [Motrin] 600 mg PO Q8HR PRN #20 tab PRN Reason: Pain Penicillin V Potassium [Pen Vee K] 500 mg PO QID #40 tablet Is patient prescribed a controlled substance at d/c from ED?: No Referrals: None,Stated [Primary Care Provider] - 1-2 days Time of Disposition: 12:16
== END 2018-07-15 12:33 | disposition home or self-care (01) ==
LOC: EC 11:06
DX: S02.5XXA Fracture of tooth (traumatic), initial encounter for closed fracture (principal); K02.9 Dental caries, unspecified; K04.7 Periapical abscess without sinus; F17.200 Nicotine dependence, unspecified, uncomplicated; X58.XXXA Exposure to other specified factors, initial encounter
CPT/HCPCS: 99283

== ENCOUNTER 2018-07-17 17:58 | Emergency (ER) | payer OTHER ==
[2018-07-17] MEDS ORDERED: HYDROcodone/APAP 5-325MG 1 EACH TAB PO STA (18:38)
[2018-07-17 19:44] VITALS: BP 128/62; PULSE 83; RESP 19; TEMP 97.4
--- NOTE | 2018-07-17 19:44 | ED ---
General Adult HPI - General Chief complaint: Dental/Oral Stated complaint: Abcess Time Seen by Provider: 07/17/18 18:08 Source: patient, RN notes reviewed, old records reviewed Mode of arrival: ambulatory Limitations: no limitations - History of Present Illness Initial comments: 23-year-old male patient with no pertinent past medical history presents to ED with 5 days of dental infection, and one day of development of abscess. Patient denies any fevers or chills. Patient denies any nausea vomiting diarrhea. Patient denies any other complaints. Pt is currently on amoxicillin. Systemic: Pt denies fatigue, myalgia, fever/chills, rash. Pt denies weakness, night sweats, weight loss. Neuro: Pt denies headache, visual disturbances, syncope or pre-syncope. HEENT: Pt denies ocular discharge or irritation, otalgia, rhinorrhea, pharyngitis or notable lymphadenopathy. Cardiopulmonary: Pt denies chest pain, SOB, heart palpitations, dyspnea on exertion. Abdominal/GI: Pt denies abdominal pain, n/v/d. : Pt denies dysuria, burning w/ urination, frequency/urgency. Denies new onset urinary or bowel incontinence. MSK: Pt denies myalgia, loss of strength or function in extremities. Neuro: Pt denies new onset weakness, paresthesias. - Related Data Previous Rx's Medication Instructions Recorded Ibuprofen [Motrin] 600 mg PO Q8HR PRN #30 tab 05/14/18 Ibuprofen [Motrin] 600 mg PO Q8HR PRN #20 tab 07/15/18 Penicillin V Potassium [Pen Vee K] 500 mg PO QID #40 tablet 07/15/18 Allergies Allergy/AdvReac Type Severity Reaction Status Date / Time No Known Allergies Allergy Verified 07/17/18 18:00 Review of Systems ROS Statement: Those systems with pertinent positive or pertinent negative responses have been documented in the HPI. ROS Other: All systems not noted in ROS Statement are negative. Past Medical History Past Medical History: No Reported History History of Any Multi-Drug Resistant Organisms: None Reported Past Surgical History: Hernia Repair, Orthopedic Surgery Additional Past Surgical History / Comment(s): right arm Past Psychological History: Bipolar Smoking Status: Current every day smoker Past Alcohol Use History: Occasional Past Drug Use History: None Reported General Exam - General Exam Comments Initial Comments: Constitutional: NAD, AOX3, Pt has pleasant affect. HEENT: NC/AT, trachea midline, neck supple, no lymphadenopathy. Posterior pharynx non erythematous, without exudates. External ears appear normal, without discharge. Mucous membranes moist. Eyes PERRLA, EOM intact. There is no scleral icterus. No pallor noted. Approximately 2 cm abscess noted above 8 and 9th tooth. I&D was performed, purulent discharge obtained. Cardiopulmonary: RRR, no murmurs, rubs or gallops, no JVD noted. Lungs CTAB in anterior and posterior kc. No peripheral edema. Abdominal exam: Abdomen soft and non-distended. Abdomen non-tender to palpation in all 4 quadrants. Bowel sounds active in LLQ. No hepatosplenomegaly. No ecchymosis Neuro: CN II-XII grossly intact. No nuchal rigidity. MSK: No posterior calf tenderness bilaterally, homans sign negative bilaterally. Posterior tibialis and radial pulse +2 bilaterally. Sensation intact in upper and lower extremities. Full active ROM in upper and lower extremities, 5/5 stregnth. Limitations: no limitations Course Vital Signs 07/17/18 07/17/18 18:00 19:43 Temperature 97.9 F 97.4 F L Pulse Rate 89 83 Respiratory 18 19 Rate Blood Pressure 134/75 128/62 O2 Sat by Pulse 99 98 Oximetry Medical Decision Making - Medical Decision Making 23-year-old male patient with no pertinent past medical history presents to ED with 5 days of dental infection, and one day of development of abscess. Patient denies any fevers or chills. Patient denies any nausea vomiting diarrhea. Patient denies any other complaints. Pt is currently on amoxicillin. Pt VSS, afebrile. Physical exam disaplyed: Approximately 2 cm abscess noted above 8 and 9th tooth. I&D was performed, purulent discharge obtained. Abscess was drained in its entirety. Pt to f/u with PCP in 1-2 days. Pt to f/u with dentist as soon as possible. Pt provided contact information of multiple dentists. Pt to continue amoxicillin as previously rx. Case described in depth with Dr. Galarza. Disposition Clinical Impression: Dental abscess Disposition: HOME SELF-CARE Condition: Stable Instructions (If sedation given, give patient instructions): Dental Abscess (ED ) Additional Instructions: Patient to adhere to previously discussed treatment plan and will take medication(s) as directed. Patient to follow up with PCP in 1-2 days. Patient to return to ED if symptoms do not improve. Is patient prescribed a controlled substance at d/c from ED?: No Referrals: None,Stated [Primary Care Provider] - 1-2 days [facility] [NON-STAFF] - 1-2 days Time of Disposition: 19:44
== END 2018-07-17 19:47 | disposition home or self-care (01) ==
LOC: EC 17:58
DX: K04.7 Periapical abscess without sinus (principal); F17.200 Nicotine dependence, unspecified, uncomplicated
CPT/HCPCS: 41800; 99283

== ENCOUNTER 2019-08-10 09:24 | Emergency (ER) | payer OTHER ==
[2019-08-10 09:48] VITALS: RESP 18
--- NOTE | 2019-08-10 10:18 | ED ---
Eye Problem HPI - General Chief complaint: Eye Problems Stated complaint: right eye swelling Time Seen by Provider: 08/10/19 09:54 Source: patient Mode of arrival: ambulatory Limitations: no limitations - History of Present Illness Initial comments: Patient is a 24-year-old male presenting to emergency Department with complaints of irritation in his right eye for the last 3 days. Patient states he noticed a small white pimple on his right top eyelid a 2-3 days ago and that started draining yesterday however he woke up this morning and his eyelid was more red and swollen than usual. He denies any significant pain in the eye, blurry vision, dizziness. He denies any trauma or foreign objects in the eye. He denies fever, chills. He has no other complaints at this time. Upon arrival to the ER his vital signs are stable. - Related Data Previous Rx's Medication Instructions Recorded Ibuprofen [Motrin] 600 mg PO Q8HR PRN #30 tab 05/14/18 Ibuprofen [Motrin] 600 mg PO Q8HR PRN #20 tab 07/15/18 Penicillin V Potassium [Pen Vee K] 500 mg PO QID #40 tablet 07/15/18 Erythromycin Ophth Oint [Romycin 1 applic RIGHT EYE QID 5 Days #1 08/10/19 Ophth Oint] tube Allergies Allergy/AdvReac Type Severity Reaction Status Date / Time No Known Allergies Allergy Verified 08/10/19 09:47 Review of Systems ROS Statement: Those systems with pertinent positive or pertinent negative responses have been documented in the HPI. ROS Other: All systems not noted in ROS Statement are negative. Past Medical History Past Medical History: No Reported History History of Any Multi-Drug Resistant Organisms: None Reported Past Surgical History: Hernia Repair, Orthopedic Surgery Additional Past Surgical History / Comment(s): right arm Past Psychological History: Bipolar Smoking Status: Current every day smoker Past Alcohol Use History: Occasional Past Drug Use History: None Reported General Exam - General Exam Comments Initial Comments: GENERAL: Well-appearing, well-nourished and in no acute distress. HEAD: Atraumatic, normocephalic. EYES: Pupils equal round and reactive to light, extraocular movements intact, sclera anicteric, conjunctiva are normal. Right upper eyelid is erythematous and the swelling. There is an external hordeolum present on the inner aspect. ENT: TMs normal, nares patent, oropharynx clear without exudates. Moist mucous membranes. NECK: Normal range of motion, supple without lymphadenopathy or JVD. LUNGS: Breath sounds clear to auscultation bilaterally and equal. No wheezes rales or rhonchi. HEART: Regular rate and rhythm without murmurs, rubs or gallops. ABDOMEN: Soft, nontender, normoactive bowel sounds. No guarding, no rebound. No masses appreciated. : Deferred EXTREMITIES: Normal range of motion, no pitting or edema. No clubbing or cyanosis. NEUROLOGICAL: Normal speech, normal gait. PSYCH: Normal mood, normal affect. SKIN: Warm, Dry, normal turgor, no rashes or lesions noted. Limitations: no limitations Course Vital Signs 08/10/19 09:45 Temperature 98.1 F Pulse Rate 77 Respiratory 18 Rate Blood Pressure 121/77 O2 Sat by Pulse 98 Oximetry Medical Decision Making - Medical Decision Making Patient is a 24-year-old male presenting with right eye irritation 3 days. No blurry vision. On exam patient has a right upper eye external hordeolum. Patient will be started on erythromycin ointment. He'll also do warm compresses to the eye. Patient is agreeable with this plan of care. He is stable for discharge at this time. Patient will follow up with PCP if symptoms persist. Disposition Clinical Impression: Hordeolum externum right upper eyelid Disposition: HOME SELF-CARE Condition: Stable Instructions (If sedation given, give patient instructions): Selene (ED) Additional Instructions: Please return to the Emergency Department if symptoms worsen or any other concerns. Use antibiotic ointment as prescribed. Also use warm compresses to the eye. Follow-up with PCP or eye doctor if symptoms persist. Prescriptions: Erythromycin Ophth Oint [Romycin Ophth Oint] 1 applic RIGHT EYE QID 5 Days #1 tube Is patient prescribed a controlled substance at d/c from ED?: No Referrals: None,Stated [Primary Care Provider] - 1-2 days
[2019-08-10 10:26] VITALS: BP 133/77; PULSE 69; TEMP 97.7
== END 2019-08-10 10:29 | disposition home or self-care (01) ==
LOC: EC 09:24
DX: H00.011 Hordeolum externum right upper eyelid (principal); F17.200 Nicotine dependence, unspecified, uncomplicated
CPT/HCPCS: 99283

== ENCOUNTER 2019-08-17 | Emergency (ER) | payer OTHER | END 2019-08-17 13:43 | disposition home or self-care (01) | CPT/HCPCS: 99284; 96374; 96361; 36415; 80053; 82150; 83690; 85025; 81001; 74018; C9113 ==

== ENCOUNTER 2019-09-22 15:58 | Emergency (ER) | payer OTHER ==
[2019-09-22 16:03] VITALS: BP 134/78; PULSE 89; RESP 20; TEMP 98.4
--- NOTE | 2019-09-22 16:23 | ED ---
Eye Problem HPI - General Chief complaint: Eye Problems Stated complaint: rt eye irritation Time Seen by Provider: 09/22/19 16:06 Source: patient Mode of arrival: ambulatory Limitations: no limitations - History of Present Illness Initial comments: Patient is a 24-year-old male presenting to the emergency Department with complaints of right eye irritation 2 days. Patient states he thinks he has a stye in his right eye. He denies any foreign bodies or injuries to his right eye. Patient states he has had the same thing happen to the other eye prev iously and this feels similar. He denies any eye pain, visual changes, dizziness. He has no other complaints at this time. Upon arrival to the ER his vitals are stable. - Related Data Home Medications Medication Instructions Recorded Confirmed Ibuprofen [Motrin Ib] 400 mg PO Q6H PRN 08/17/19 08/17/19 Previous Rx's Medication Instructions Recorded Omeprazole [PriLOSEC] 20 mg PO AC-BRKFST #14 cap 08/17/19 Ondansetron Odt [Zofran Odt] 4 mg PO Q8HR PRN #10 tab 08/17/19 Erythromycin Ophth Oint [Romycin 1 applic RIGHT EYE QID 5 Days #1 09/22/19 Ophth Oint] tube Allergies Allergy/AdvReac Type Severity Reaction Status Date / Time No Known Allergies Allergy Verified 09/22/19 16:03 Review of Systems ROS Statement: Those systems with pertinent positive or pertinent negative responses have been documented in the HPI. ROS Other: All systems not noted in ROS Statement are negative. Past Medical History Past Medical History: No Reported History History of Any Multi-Drug Resistant Organisms: None Reported Past Surgical History: Hernia Repair, Orthopedic Surgery Additional Past Surgical History / Comment(s): right arm Past Psychological History: Bipolar Smoking Status: Current every day smoker Past Alcohol Use History: Occasional Past Drug Use History: None Reported General Exam - General Exam Comments Initial Comments: GENERAL: Well-appearing, well-nourished and in no acute distress. HEAD: Atraumatic, normocephalic. EYES: Pupils equal round and reactive to light, extraocular movements intact, sclera anicteric, conjunctiva are normal. Patient does have mild erythema of the right lower eyelid, stye is present in the lower eye. ENT: TMs normal, nares patent, oropharynx clear without exudates. Moist mucous membranes. NECK: Normal range of motion, supple without lymphadenopathy or JVD. LUNGS: Breath sounds clear to auscultation bilaterally and equal. No wheezes rales or rhonchi. HEART: Regular rate and rhythm without murmurs, rubs or gallops. ABDOMEN: Soft, nontender, normoactive bowel sounds. No guarding, no rebound. No masses appreciated. : Deferred EXTREMITIES: Normal range of motion, no pitting or edema. No clubbing or cyanosis. SKIN: Warm, Dry, normal turgor, no rashes or lesions noted. Limitations: no limitations Course Vital Signs 09/22/19 15:59 Temperature 98.4 F Pulse Rate 89 Respiratory 20 Rate Blood Pressure 134/78 O2 Sat by Pulse 94 L Oximetry Medical Decision Making - Medical Decision Making Patient is a 24-year-old male presenting with a stye of lower lid of the right eye. No other acute abnormalities. Patient will be given erythromycin ointment to use. He will follow-up with his eye doctor if symptoms persist. Patient's agreement this plan of care. Return parameters were discussed with the patient he verbalizes understanding. Case discussed with Dr. Mireles. Disposition Clinical Impression: Hordeolum internum of right lower eyelid Disposition: HOME SELF-CARE Condition: Stable Instructions (If sedation given, give patient instructions): Selene (ED) Additional Instructions: Please return to the Emergency Department if symptoms worsen or any other concerns. Use ointment as discussed. Prescriptions: Erythromycin Ophth Oint [Romycin Ophth Oint] 1 applic RIGHT EYE QID 5 Days #1 tube Is patient prescribed a controlled substance at d/c from ED?: No Referrals: None,Stated [Primary Care Provider] - 1-2 days
== END 2019-09-22 16:42 | disposition home or self-care (01) ==
LOC: EC 15:58
DX: H00.022 Hordeolum internum right lower eyelid (principal); F17.200 Nicotine dependence, unspecified, uncomplicated
CPT/HCPCS: 99282

== ENCOUNTER 2020-03-28 23:35 | Emergency (ER) | payer OTHER ==
[2020-03-28 23:43] VITALS: BP 116/75; PULSE 70; RESP 18; TEMP 98.6
--- NOTE | 2020-03-29 00:10 | ED ---
Wound/Laceration HPI - General Chief Complaint: Wound/Laceration Stated Complaint: Open wound on LT elbow Time Seen by Provider: 03/28/20 23:45 Source: patient Mode of arrival: ambulatory Limitations: no limitations - History of Present Illness Initial Comments: Patient is a 25-year-old male presenting to the emergency Department with complaints of an open wound on his left elbow. Patient states he went to [facility] one week ago to receive sutures of a laceration on his left elbow. Patient states he thought the wound was healed up so his girlfriend to go stitches today however the wound opened up a few hours ago. Patient denies any drainage from the area, severe pain. He denies any fever, chills. There are no further complaints. His tetanus vaccine is up-to-date. - Related Data Home Medications Medication Instructions Recorded Confirmed Ibuprofen [Motrin Ib] 400 mg PO Q6H PRN 08/17/19 08/17/19 Previous Rx's Medication Instructions Recorded Omeprazole [PriLOSEC] 20 mg PO AC-BRKFST #14 cap 08/17/19 Ondansetron Odt [Zofran Odt] 4 mg PO Q8HR PRN #10 tab 08/17/19 Erythromycin Ophth Oint [Romycin 1 applic RIGHT EYE QID 5 Days #1 09/22/19 Ophth Oint] tube Allergies Allergy/AdvReac Type Severity Reaction Status Date / Time No Known Allergies Allergy Verified 03/28/20 23:43 Review of Systems ROS Statement: Those systems with pertinent positive or pertinent negative responses have been documented in the HPI. ROS Other: All systems not noted in ROS Statement are negative. Past Medical History Past Medical History: No Reported History History of Any Multi-Drug Resistant Organisms: None Reported Past Surgical History: Hernia Repair, Orthopedic Surgery Additional Past Surgical History / Comment(s): right arm Past Psychological History: Bipolar Smoking Status: Current every day smoker Past Alcohol Use History: Occasional Past Drug Use History: None Reported General Exam - General Exam Comments Initial Comments: GENERAL: Patient is well-developed and well-nourished. Patient is nontoxic and in no acute distress. HEAD: Atraumatic, normocephalic. EYES: Pupils equal round and reactive to light, extraocular movements intact, sclera anicteric, conjunctiva are normal. Eyelids were unremarkable. ENT: TMs normal, nares patent, oropharynx clear without exudates. Moist mucous membranes. NECK: Normal range of motion, supple without lymphadenopathy or JVD. LUNGS: Unlabored respirations. Breath sounds clear to auscultation bilaterally and equal. No wheezes rales or rhonchi. HEART: Regular rate and rhythm without murmurs, rubs or gallops. ABDOMEN: Soft, nontender, normoactive bowel sounds. No guarding, no rebound. No masses appreciated. : Deferred MUSCULOSKELETAL: Normal extremities with adequate strength and normal range of motion, no pitting or edema. No clubbing or cyanosis. NEUROLOGICAL: Patient is alert and oriented x 3. Normal speech, normal gait. PSYCH: Normal mood, normal affect. SKIN: Warm, Dry, normal turgor, no rashes. Patient has a 2 cm laceration to the posterior aspect of the left elbow. There are no signs of infection at this time. Limitations: no limitations Course Vital Signs 03/28/20 23:42 Temperature 98.6 F Pulse Rate 70 Respiratory 18 Rate Blood Pressure 116/75 O2 Sat by Pulse 99 Oximetry Medical Decision Making - Medical Decision Making Patient is a 25-year-old male here for a 2 cm open and healing laceration of the left elbow. His girlfriend removed the stitches today and the wound opened up. The wound was cleaned, I did apply Steri-Strips to the wound and a bandage. Discussed with patient wound care. He is stable for discharge. He can follow up with his PCP. Disposition Clinical Impression: Laceration without foreign body of left elbow, sequela Disposition: HOME SELF-CARE Condition: Stable Instructions (If sedation given, give patient instructions): Acute Wound Care (ED) Additional Instructions: Please return to the Emergency Department if symptoms worsen or any other concerns. Keep Steri-Strips in place. Keep wound clean and dry. Cover while working. Is patient prescribed a controlled substance at d/c from ED?: No Referrals: None,Stated [Primary Care Provider] - 1-2 days
== END 2020-03-29 00:18 | disposition home or self-care (01) ==
LOC: EC 23:35
DX: S51.012S Laceration without foreign body of left elbow, sequela (principal); F17.200 Nicotine dependence, unspecified, uncomplicated; X58.XXXS Exposure to other specified factors, sequela
CPT/HCPCS: 99283

== ENCOUNTER → 2020-07-26 | Outpatient (CLI) | payer OTHER ==
--- NOTE | 2020-07-26 08:27 | US ---
EXAMINATION TYPE: US liver DATE OF EXAM: 07/26/2020 COMPARISON: CT 2017 CLINICAL HISTORY: Z86.19 Patient history of other infectious and par. elevated liver enzymes EXAM MEASUREMENTS: Liver Length: 16.7 cm Gallbladder Wall: 0.2 cm CBD: 0.3 cm Right Kidney: 12.0 x 4.8 x 5.1 cm Pancreas: not well visualized Liver: difficult to penetrate, somewhat coarse echotexture Gallbladder: No stones seen Evidence for sonographic Dawn's sign: No CBD: wnl Right Kidney: No hydronephrosis or masses seen IMPRESSION: 1. Visualized right upper quadrant ultrasound is unremarkable.
[2020-07-26 08:49] LABS: Prothrombin Time 10.5 sec (9.0-12.0)
[2020-07-26 13:21] LABS: Hepatitis B Core IgM Non-Reactive (Non-Reactive)
== END ==
LOC: RADUSWWP 07:58
PROVIDERS: ATTEND Internal Medicine Gastroenterology
DX: R74.8 Abnormal levels of other serum enzymes (principal); Z86.19 Personal history of other infectious and parasitic diseases
CPT/HCPCS: 36415; 76705; 85610; 86704; 86705; 87522

== ENCOUNTER → 2021-03-16 | Outpatient (CLI) | payer OTHER ==
--- NOTE | 2021-03-16 12:33 | XR ---
EXAMINATION TYPE: XR shoulder limited LT DATE OF EXAM: 03/16/2021 COMPARISON: NONE HISTORY: Pain TECHNIQUE: Two views are submitted. FINDINGS: The osseous structures are intact. There is no acute fracture or dislocation. The AC joint is maint ained. IMPRESSION: 1. No acute process.
--- NOTE | 2021-03-16 12:34 | XR ---
EXAMINATION TYPE: XR clavicle LT DATE OF EXAM: 03/16/2021 COMPARISON: NONE HISTORY: Pain TECHNIQUE: 2 views submitted FINDINGS: Osseous structures are intact. No acute displaced fracture identified. IMPRESSION: No acute fracture symptoms persist consider MRI.
== END | disposition home or self-care (01) ==
LOC: RADXRMAIN 12:01
PROVIDERS: ATTEND Family Medicine
DX: M25.512 Pain in left shoulder (principal)

== ENCOUNTER → 2021-04-28 | Outpatient (CLI) | payer OTHER | END | disposition home or self-care (01) | LOC: LABWHC1 12:16 | PROVIDERS: ATTEND Family Medicine | DX: Z20.822 Contact with and (suspected) exposure to COVID-19 (principal); R05.9 Cough, unspecified | CPT/HCPCS: U0003; C9803; U0005 ==

== ENCOUNTER 2022-02-07 17:52 | Emergency (ER) | payer OTHER ==
[2022-02-07 18:47] VITALS: BP 134/74; PULSE 70; RESP 20; TEMP 97.6
[2022-02-07] MEDS ORDERED: PROPARACAINE 0.5% OPHTH DROPS 15 ML BTL LEFT EYE STA (19:11)
[2022-02-07] MEDS ORDERED: FLUORESCEIN STRIPS 1 MG STRIP LEFT EYE ONE (19:11)
[2022-02-07] MEDS ORDERED: SULFACETAMIDE SOD 10% OPHTH DROPS 15 ML BTL LEFT EYE STA (19:41)
--- NOTE | 2022-02-07 19:54 | ED ---
Eye Problem HPI - General Chief complaint: Eye Problems Stated complaint: lt eye problems Time Seen by Provider: 02/07/22 19:05 Source: patient, RN notes reviewed Mode of arrival: ambulatory Limitations: no limitations - History of Present Illness Initial comments: This is a 27-year-old male who presents to the emergency department for left eye pain. Patient states that when he woke up this morning, he felt like he had something stuck in his eye. He tried lifting up his eyelid and cleaning the eye, however he was not able to see anything or improve that sensation. Also tried applying [id number] lubricating eyedrops with no relief. Denies doing anything yesterday that could've gotten something stuck in his eye. Denies any visual changes, and primarily reports the pain and foreign body sensation. Additionally, he states that yesterday at work, he felt like his left hip popped. He has been having pain since, but states that he is able to walk without too much difficulty. Denies any fevers, chills, sore throat, cough, dyspnea, chest pain, palpitations, abdominal pain, nausea, vomiting, diarrhea, back pain, or headaches. MD chief complaint: eye pain, foreign body Location: left eye Treatments Prior to Arrival: irrigated eye, OTC eye drops - Related Data Patient Tetanus UTD: Yes Home Medications Medication Instructions Recorded Confirmed No Known Home Medications 02/07/22 02/07/22 Allergies Allergy/AdvReac Type Severity Reaction Status Date / Time No Known Allergies Allergy Verified 02/07/22 19:39 Review of Systems ROS Statement: Those systems with pertinent positive or pertinent negative responses have been documented in the HPI. ROS Other: All systems not noted in ROS Statement are negative. Past Medical History Past Medical History: No Reported History History of Any Multi-Drug Resistant Organisms: None Reported Past Surgical History: Hernia Repair, Orthopedic Surgery Additional Past Surgical History / Comment(s): right arm Past Psychological History: Bipolar Smoking Status: Current every day smoker Past Alcohol Use History: Occasional Past Drug Use History: None Reported General Exam Limitations: no limitations General appearance: alert, in no apparent distress Head exam: Present: atraumatic, normocephalic, normal inspection Eye exam: Present: PERRL, EOMI, other (Pinpoint black area overlying the cornea). Absent: scleral icterus, periorbital swelling, periorbital tenderness Pupils: Present: normal accommodation Respiratory exam: Present: normal lung sounds bilaterally. Absent: respiratory distress, wheezes, rales, rhonchi, stridor Cardiovascular Exam: Present: regular rate, normal rhythm, normal heart sounds. Absent: systolic murmur, diastolic murmur, rubs, gallop, clicks Left Hip exam: Present: normal inspection, full ROM. Absent: tenderness, swelling, ecchymosis, deformity, external rotation, internal rotation, shortening Upper Leg exam: Present: normal inspection, full ROM. Absent: tenderness, swelling, ecchymosis, deformity, crepitus Neurological exam: Present: alert, oriented X3, CN II-XII intact Psychiatric exam: Present: normal affect, normal mood Skin exam: Present: warm, dry, intact, normal color. Absent: rash Course Vital Signs 02/07/22 18:45 Temperature 97.6 F Pulse Rate 70 Respiratory 20 Rate Blood Pressure 134/74 O2 Sat by Pulse 98 Oximetry Medical Decision Making - Medical Decision Making This is a 27-year-old male who presents to the emergency department for left eye pain. Physical exam does reveal possible foreign body in the center of the left cornea on initial evaluation. Fluorescein staining done, which highlighted the same area. Algerbrush was used, which appears to have removed a portion of the foreign body, as the patient did notice a decrease in the pain and foreign body sensation afterwards. However, after the 5 passes, physical exam did reveal that a portion of this was still present. There were no additional passes done, as this could lead to a corneal ulceration. Patient was given a prescription for sulfacetamide eyedrops. These were brought him in the emergency department, as his pharmacy is currently closed. Information for ophthalmology follow-up was provided, and he was instructed to call them first thing tomorrow morning for a follow-up appointment. Additionally, the patient's hip x-ray revealed no acute irregularities. Advised to take Tylenol and ibuprofen as needed for pain relief and to try applying ice to the area of pain. Return precautions reviewed in depth, the patient is instructed to return to the emergency department with any new, worsening, or concerning symptoms. Patient verbalized understanding. This case was discussed in detail with the attending ED physician. Presentation, findings, and treatment plan discussed in detail as well. - Radiology Data Radiology results: report reviewed, image reviewed Disposition Clinical Impression: Foreign body in eyeball, left, Left hip pain Disposition: HOME SELF-CARE Instructions (If sedation given, give patient instructions): Corneal Abrasion (ED), Eye Foreign Body (ED) Additional Instructions: Return to the emergency department with any new, worsening, or concerning symptoms. Apply the antibiotic eye drops as 2 drops in the left eye every 6 hours. Contact the activity leader, Dr. Vega, first thing in the morning for a follow-up appointment. Make sure you tell them that you have a foreign body in your eye. Alternate with Ibuprofen and Tylenol as needed for the hip pain. Is patient prescribed a controlled substance at d/c from ED?: No Referrals: Magnolia Canales MD [Primary Care Provider] - 1-2 days Nikunj Vega MD [STAFF PHYSICIAN] - 1-2 days
--- NOTE | 2022-02-07 20:25 | XR ---
EXAMINATION TYPE: XR Hip Complete LT DATE OF EXAM: 02/07/2022 COMPARISON: NONE HISTORY: Pain. TECHNIQUE: 2 views FINDINGS: Proximal femur and hip joint appear normal. I see no fracture nor dislocation. Sacroiliac j oint appears normal. IMPRESSION: Normal left hip exam.
== END 2022-02-07 20:35 | disposition home or self-care (01) ==
LOC: EC 17:52
DX: T15.82XA Foreign body in other and multiple parts of external eye, left eye, initial encounter (principal); M25.552 Pain in left hip; F17.200 Nicotine dependence, unspecified, uncomplicated; X58.XXXA Exposure to other specified factors, initial encounter
CPT/HCPCS: 65205; 73502; 99283

== ENCOUNTER 2023-07-29 17:54 | Emergency (ER) | payer OTHER ==
--- NOTE | 2023-07-29 18:19 | ED ---
Upper Extremity HPI - General Source: patient, RN notes reviewed Mode of arrival: ambulatory Limitations: no limitations <Yas Jiang - Last Filed: 07/29/23 18:18> <Janel Littlejohn - Last Filed: 07/29/23 20:48> - General Chief Complaint: Extremity Injury, Upper Stated Complaint: L hand swelling Time Seen by Provider: 07/29/23 18:18 - History of Present Illness Initial Comments: Patient is a 28-year-old male presented to ER with chief complaint of left hand swelling. Patient states has been going on for a while. Patient endorses paresthesias constantly. Denies any injuries. (Yas Jiang) 28-year-old male presents to the emergency department for evaluation of left lateral hand pain. He states that this started around 2 years ago. He states that the pain is worse with repetitive movements at his job. He notes that the pain is in his thenar aspect of his hand and radiates into his fingers. He denies any injuries. Denies recent fevers. He has good range of motion to the hand and fingers. (Janel Littlejohn) - Related Data Home Medications Medication Instructions Recorded Confirmed No Known Home Medications 02/07/22 02/07/22 Allergies Allergy/AdvReac Type Severity Reaction Status Date / Time No Known Allergies Allergy Verified 02/07/22 19:39 Review of Systems ROS Other: All systems not noted in ROS Statement are negative. <Yas Jiang - Last Filed: 07/29/23 18:18> ROS Other: All systems not noted in ROS Statement are negative. <Janel Littlejohn - Last Filed: 07/29/23 20:48> ROS Statement: Those systems with pertinent positive or pertinent negative responses have been documented in the HPI. Past Medical History Past Medical History: No Reported History History of Any Multi-Drug Resistant Organisms: None Reported Past Surgical History: Hernia Repair, Orthopedic Surgery Additional Past Surgical History / Comment(s): right arm Past Psychological History: Bipolar Smoking Status: Current every day smoker Past Alcohol Use History: Occasional Past Drug Use History: None Reported <Yas Jiang - Last Filed: 07/29/23 18:18> General Exam Limitations: no limitations <Yas Jiang - Last Filed: 07/29/23 18:18> Limitations: no limitations General appearance: alert, in no apparent distress Head exam: Present: atraumatic, normocephalic, normal inspection Eye exam: Present: normal appearance, PERRL, EOMI. Absent: scleral icterus, conjunctival injection, periorbital swelling ENT exam: Present: normal exam, mucous membranes moist Respiratory exam: Present: normal lung sounds bilaterally. Absent: respiratory distress, wheezes, rales, rhonchi, stridor Cardiovascular Exam: Present: regular rate, normal rhythm, normal heart sounds. Absent: systolic murmur, diastolic murmur, rubs, gallop, clicks Extremities exam: Present: full ROM, tenderness (Tenderness over the thenar aspect of the left hand), normal capillary refill, other (Radial pulses 2+) Neurological exam: Present: alert, oriented X3 Psychiatric exam: Present: normal affect, normal mood Skin exam: Present: warm, dry, intact, normal color. Absent: rash <Janel Littlejohn - Last Filed: 07/29/23 20:48> - General Exam Comments Initial Comments: Visual Physical Exam Vital signs reviewed General: Well-appearing, nontoxic, no acute distress. Head: Normocephalic, atraumatic Eyes: PERRLA, EOMI ENT: Airway patent Chest: Nonlabored breathing Skin: No visual rash, normal skin tone Neuro: Alert and oriented 3 Musculoskeletal: No gross abnormalities (Yas Jiang) Course Vital Signs 07/29/23 07/29/23 18:08 19:46 Temperature 98.1 F Pulse Rate 70 78 Respiratory 18 18 Rate Blood Pressure 140/80 127/86 O2 Sat by Pulse 98 98 Oximetry Medical Decision Making <Yas Jiang - Last Filed: 07/29/23 18:18> <Janel Littlejohn - Last Filed: 07/29/23 20:48> - Medical Decision Making I performed the quick note portion of this chart. Electronically signed by Yas Jiang PA-C (Yas Jiang) Was pt. sent in by a medical professional or institution (TARSHA Tavarez, RECOVERY OPERATOR, urgent care, hospital, or correction...) When possible be specific @ -No Did you speak to anyone other than the patient for history (EMS, parent, family, police, friend...)? What history was obtained from this source @ -No Did you review nursing and triage notes (agree or disagree)? Why? @ -I reviewed and agree with nursing and triage notes Were old charts reviewed (outside hosp., previous admission, EMS record, old EKG, old radiological studies, urgent care reports/EKG's, correction records)? Report findings @ -No old charts were reviewed Differential Diagnosis (chest pain, altered mental status, abdominal pain women, abdominal pain men, vaginal bleeding, weakness, fever, dyspnea, syncope, headache, dizziness, GI bleed, back pain, seizure, CVA, palpatations, mental health, musculoskeletal)? @ -Differential Musculoskeletal Muscular strain, contusion, ligament sprain, fracture, arthritis, septic arthritis, bursitis, cellulitis, muscle spasm, nerve compression, DVT, arterial occlusion, herpes zoster, electrolyte abnormality, tumor.... This is not meant to be in all inclusive list EKG interpreted by me (3pts min.). @ -None X-rays interpreted by me (1pt min.). @ -X-ray left hand shows no acute fracture, some soft tissue swelling present CT interpreted by me (1pt min.). @ -None done U/S interpreted by me (1pt. min.). @ -None done What testing was considered but not performed or refused? (CT, X-rays, U/S, labs)? Why? @ -None What meds were considered but not given or refused? Why? @ -None Did you discuss the management of the patient with other professionals (professionals i.e. , PA, RECOVERY OPERATOR, lab, RT, psych nurse, social sciences professor, collar setter overlock, teacher, regulatory compliance officer, case therapist)? Give summary @ -No Was smoking cessation discussed for >3mins.? @ -No Was critical care preformed (if so, how long)? @ -No Were there social determinants of health that impacted care today? How? (Homelessness, low income, unemployed, alcoholism, drug addiction, transportation, low edu. Level, literacy, decrease access to med. care, [facility], rehab)? @ -No Was there de-escalation of care discussed even if they declined (Discuss DNR or withdrawal of care, Hospice)? DNR status @ -No What co-morbidities impacted this encounter? (DM, HTN, Smoking, COPD, CAD, Cancer, CVA, ARF, Chemo, Hep., AIDS, mental health diagnosis, sleep apnea, morbid obesity)? @ -None Was patient admitted / discharged? Hospital course, mention meds given and route, prescriptions, significant lab abnormalities, going to OR and other pertinent info. @ -Discharged. Patient presented to the emergency department for evaluation of left hand pain that has been going on for 2 years. X-rays obtained which shows no evidence of acute fracture with some mild soft tissue swelling. On examination, patient has some thenar tenderness, and dorsal left hand pain. He has full range of motion to all fingers and at the wrist with 5 out of 5 strength. Radial pulses 2+. Patient will be discharged home with follow-up to his PCP. Patient stable at time of discharge. Case discussed with Dr. Daniels. Undiagnosed new problem with uncertain prognosis? @ -No Drug Therapy requiring intensive monitoring for toxicity (Heparin, Nitro, Insulin, Cardizem)? @ -No Were any procedures done? @ -No Diagnosis/symptom? @ -Hand pain, carpal tunnel Acute, or Chronic, or Acute on Chronic? @ -Chronic Uncomplicated (without systemic symptoms) or Complicated (systemic symptoms)? @ -Uncomplicated Side effects of treatment? @ -No Exacerbation, Progression, or Severe Exacerbation? @ -No Poses a threat to life or bodily function? How? (Chest pain, [place], [place], pneumonia, PE, COPD, DKA, ARF, appy, cholecystitis, CVA, Diverticulitis, Homicidal, Suicidal, threat to staff... and all critical care pts) @ -No (Janel Littlejohn) Disposition <Yas Jiang - Last Filed: 07/29/23 18:18> Is patient prescribed a controlled substance at d/c from ED?: No <Janel Littlejohn - Last Filed: 07/29/23 20:48> Clinical Impression: Carpal tunnel syndrome of left wrist Disposition: HOME SELF-CARE Condition: Stable Instructions (If sedation given, give patient instructions): Paresthesia (ED) Additional Instructions: Please follow up with your primary care provider and the hand specialist. Return to the emergency department for new or worsening symptoms. Referrals: None,Stated [Primary Care Provider] - 1-2 days Tyson Swan DO [Doctor of Osteopathic Medicine] - 1-2 days
--- NOTE | 2023-07-29 18:30 | XR ---
PROCEDURE: XR hand complete LT - 3V DATE AND TIME: 07/29/2023 6:24 PM CLINICAL INDICATION: PHH; hand pain, swelling TECHNIQUE: Department protocol COMPARISON: None FINDINGS: There is no fracture or malalignment. The soft tissues show evidence of swelling but no focal soft tissue findings. IMPRESSION: No acute radiographic process.
[2023-07-29 18:36] VITALS: RESP 18; TEMP 98.1
[2023-07-29] MEDS: ACET/COD 300 MG/30 MG STARTER PACK 6 TAB BTL PO STA (19:43)
[2023-07-29 19:57] VITALS: BP 127/86; PULSE 78
== END 2023-07-29 19:46 | disposition home or self-care (01) ==
LOC: EC 17:54
DX: G56.02 Carpal tunnel syndrome, left upper limb (principal); F17.200 Nicotine dependence, unspecified, uncomplicated; Z86.59 Personal history of other mental and behavioral disorders
CPT/HCPCS: 99283

== ENCOUNTER 2024-02-24 15:37 | Emergency (ER) | payer OTHER ==
[2024-02-24 15:41] VITALS: RESP 18
--- NOTE | 2024-02-24 15:59 | ED ---
Skin/Abscess/FB HPI - General Chief complaint: Skin/Abscess/Foreign Body Stated complaint: lump on neck Time Seen by Provider: 02/24/24 15:42 Source: patient, RN notes reviewed Mode of arrival: ambulatory Limitations: no limitations - History of Present Illness Initial comments: 21-year-old male presents emergency department complaining of lump on his neck. Patient states has been there for over the week states that it is more painful than usual. Patient states that it is red and swollen. Patient states it is very firm to the touch. Patient offers no other complaints. - Related Data Previous Rx's Medication Instructions Recorded Cephalexin [Keflex] 500 mg PO Q6HR #40 cap 02/24/24 Ibuprofen [Motrin] 600 mg PO Q8HR PRN #20 tab 02/24/24 Sulfamethox-Tmp 800-160Mg [Bactrim 1 each PO Q12HR #20 tab 02/24/24 Ds] Allergies Allergy/AdvReac Type Severity Reaction Status Date / Time No Known Allergies Allergy Verified 02/24/24 15:41 Review of Systems ROS Statement: Those systems with pertinent positive or pertinent negative responses have been documented in the HPI. ROS Other: All systems not noted in ROS Statement are negative. Past Medical History Past Medical History: No Reported History History of Any Multi-Drug Resistant Organisms: None Reported Past Surgical History: Hernia Repair, Orthopedic Surgery Additional Past Surgical History / Comment(s): right arm Past Psychological History: Bipolar Smoking Status: Current every day smoker Past Alcohol Use History: Occasional Past Drug Use History: None Reported General Exam Limitations: no limitations General appearance: alert, in no apparent distress Head exam: Present: atraumatic, normocephalic, normal inspection Eye exam: Present: normal appearance, PERRL, EOMI. Absent: scleral icterus, conjunctival injection, periorbital swelling ENT exam: Present: normal exam, mucous membranes moist Neck exam: Present: normal inspection (Raised nonfluctuant sebaceous cyst with surrounding erythema posterior neck), tenderness, full ROM. Absent: meni ngismus, lymphadenopathy Respiratory exam: Present: normal lung sounds bilaterally. Absent: respiratory distress, wheezes, rales, rhonchi, stridor Cardiovascular Exam: Present: regular rate, normal rhythm, normal heart sounds. Absent: systolic murmur, diastolic murmur, rubs, gallop, clicks Course Vital Signs 02/24/24 15:38 Temperature 97.9 F Pulse Rate 94 Respiratory 18 Rate Blood Pressure 123/75 O2 Sat by Pulse 98 Oximetry Medical Decision Making - Medical Decision Making Was pt. sent in by a medical professional or institution (TARSHA Tavarez, REED OR WIND INSTRUMENT REPAIRER, urgent care, hospital, or group home...) When possible be specific @ -No Did you speak to anyone other than the patient for history (EMS, parent, family, police, friend...)? What history was obtained from this source @ -No Did you review nursing and triage notes (agree or disagree)? Why? @ -I reviewed and agree with nursing and triage notes Were old charts reviewed (outside hosp., previous admission, EMS record, old EKG, old radiological studies, urgent care reports/EKG's, group home records)? Report findings @ -No old charts were reviewed Differential Diagnosis (chest pain, altered mental status, abdominal pain women, abdominal pain men, vaginal bleeding, weakness, fever, dyspnea, syncope, headache, dizziness, GI bleed, back pain, seizure, CVA, palpatations, mental health, musculoskeletal)? @ -Sebaceous infected abscess, EKG interpreted by me (3pts min.). @ -None X-rays interpreted by me (1pt min.). @ -None done CT interpreted by me (1pt min.). @ -None done U/S interpreted by me (1pt. min.). @ -None done What testing was considered but not performed or refused? (CT, X-rays, U/S, labs)? Why? @ -None What meds were considered but not given or refused? Why? @ -None Did you discuss the management of the patient with other professionals (professionals i.e. TARSHA Tavarez, REED OR WIND INSTRUMENT REPAIRER, lab, RT, psych nurse, adoption social worker, lawyers, teacher, department of natural resources officer, therapeutic case manager)? Give summary @ -No Was smoking cessation discussed for >3mins.? @ -No Was critical care preformed (if so, how long)? @ -No Were there social determinants of health that impacted care today? How? (Homelessness, low income, unemployed, alcoholism, drug addiction, transportation, low edu. Level, literacy, decrease access to med. care, halfway, rehab)? @ -No Was there de-escalation of care discussed even if they declined (Discuss DNR or withdrawal of care, Hospice)? DNR status @ -No What co-morbidities impacted this encounter? (DM, HTN, Smoking, COPD, CAD, Cancer, CVA, ARF, Chemo, Hep., AIDS, mental health diagnosis, sleep apnea, morbid obesity)? @ -None Was patient admitted / discharged? Hospital course, mention meds given and route, prescriptions, significant lab abnormalities, going to OR and other pertinent info. @ -Discharge patient has nonfluctuant swollen area in the posterior neck's cons istent with sebaceous cyst with surrounding erythema concerning for infection patient was placed on antibiotics and follow-up with dermatology for removal Undiagnosed new problem with uncertain prognosis? @ -No Drug Therapy requiring intensive monitoring for toxicity (Heparin, Nitro, Insulin, Cardizem)? @ -No Were any procedures done? @ -No Diagnosis/symptom? @ -Infected sebaceous cyst Acute, or Chronic, or Acute on Chronic? @ -Acute Uncomplicated (without systemic symptoms) or Complicated (systemic symptoms)? @ -uncomplicated Side effects of treatment? @ -No Exacerbation, Progression, or Severe Exacerbation? @ -No Poses a threat to life or bodily function? How? (Chest pain, [place], [place], pneumonia, PE, COPD, DKA, ARF, appy, cholecystitis, CVA, Diverticulitis, Homicidal, Suicidal, threat to staff... and all critical care pts) @ -No Disposition Clinical Impression: Infected sebaceous cyst Disposition: HOME SELF-CARE Condition: Stable Instructions (If sedation given, give patient instructions): Cyst (ED) Additional Instructions: please return to the Emergency Department if symptoms worsen or any other concerns. Prescriptions: Sulfamethox-Tmp 800-160Mg [Bactrim Ds] 1 each PO Q12HR #20 tab Cephalexin [Keflex] 500 mg PO Q6HR #40 cap Ibuprofen [Motrin] 600 mg PO Q8HR PRN #20 tab PRN Reason: Pain Is patient prescribed a controlled substance at d/c from ED?: No Referrals: Maribell Delgado MD [STAFF PHYSICIAN] - 1-2 days Time of Disposition: 15:59
[2024-02-24] MEDS: ACET/COD 300 MG/30 MG STARTER PACK 6 TAB BTL PO STA (16:15)
[2024-02-24 16:36] VITALS: BP 118/76; PULSE 86; TEMP 98.1
== END 2024-02-24 16:37 | disposition home or self-care (01) ==
LOC: EC 15:37
CPT/HCPCS: 99283